=== PATIENT | female | born 1945 | race Caucasian/White ===

== ENCOUNTER 2017-01-10 09:23 | Inpatient (IN) ==
--- NOTE | 2017-01-10 09:54 | Emergency Department Note ---
Disposition Clinical Impression: Acute exacerbation of chronic obstructive airways disease, Atrial fibrillation with rapid ventricular response Disposition: Admitted As Inpatient Condition: Fair Referrals: Cornelia Stephen CNP [Primary Care Provider] - Forms: ED Satisfaction Letter General Adult HPI - General Chief complaint: ED Shortness of Breath/Dyspnea Stated complaint: chest pain Time Seen by Provider: 01/10/17 09:40 Source: patient Limitations: no limitations Nursing Notes Reviewed: Yes Vital Signs Reviewed: Yes - History of Present Illness Pain Scale: 6 - Related Data Home Medications Medication Instructions Recorded Confirmed Aspirin [Lo-Dose Aspirin EC] 81 mg PO DAILY 01/10/17 01/10/17 Carvedilol [Coreg] 25 mg PO BID 01/10/17 01/10/17 Cholecalciferol (D-3) [Vitamin D] 1,000 unit PO DAILY 01/10/17 01/10/17 Cyanocobalamin (B-12) [Vitamin B12] 1 ml IM QMONTH 01/10/17 01/10/17 Doxycycline Hyclate [Vibramycin] 100 mg PO BID 01/10/17 01/10/17 Losartan/Hydrochlorothiazide 1 tab PO DAILY 01/10/17 01/10/17 [Losartan-Hctz 50-12.5 mg Tab] Multivit-Min/FA/Lycopen/Lutein [A 1 tab PO DAILY 01/10/17 01/10/17 Thru Z Select Multivit Tab] Pantoprazole Sodium [Protonix] 40 mg PO DAILY 01/10/17 01/10/17 PredniSONE [Deltasone] 20 mg PO BID 01/10/17 01/10/17 Promethazine/Codeine 5 - 10 ml PO Q6HR PRN 01/10/17 01/10/17 [Phenergan/Codeine] Ustekinumab [STELARA (For 90 mg SQ Q3M 01/10/17 01/10/17 Outpatient Infusion)] Allergies Allergy/AdvReac Type Severity Reaction Status Date / Time No Known Allergies Allergy Verified 01/10/17 09:59 Past Medical History - Past Medical History Medical history: Reports: no medical history Psychiatric history: Reports: no psych history - Social History Smoking Status: Never smoker Smokeless Tobacco Status: No Alcohol use: Reports: none Drug use: Reports: none Physical Exam - General Limitations: no limitations General appearance: alert, in no apparent distress Course Vital Signs Temperature 0 F L 01/10/17 09:27 Pulse Rate 91 01/10/17 09:27 Respiratory Rate 18 01/10/17 09:27 Blood Pressure 0/0 01/10/17 09:27 O2 Sat by Pulse Oximetry 94 01/10/17 09:27 Temperature 98.5 F 01/10/17 10:01 Pulse Rate 116 01/10/17 12:15 Respiratory Rate 20 01/10/17 12:15 Blood Pressure 107/74 01/10/17 12:15 O2 Sat by Pulse Oximetry 97 01/10/17 12:15 Oxygen Delivery Oxygen Delivery Room Air Medical Decision Making - MDM Narrative Medical decision making narrative: I examined this patient and my medical decision-making was reviewed with the Resident Physician. I agree with the documented findings, disposition and treatment plan as described except to the extent set forth below. Patient was seen and evaluated by Dr. Silva and myself, I agree with his evaluation and treatment plan, I supervised the care of the patient's stay. Patient states that she has had a cough going on for several weeks. She is on doxycycline, a cough medication, and steroids now. She is denies having any heart issues in the past but she is on carvedilol. She says she follows up at [facility]. Receiving an old EKG. Currently she denies any chest pain. She has a low blood pressure and irregular heart rate with A. fib RVR. So we will give her fluids in supine control heart rate. And then reassess. She will most likely need admission. Chest X-Ray 01/10/17 09:41 IMPRESSION: No evidence of acute cardiopulmonary disease. D/ / Arturo Rodriguez MD / Arturo Rodriguez MD Interpreting Provider: Arturo Rodriguez MD 1105 hrs.: Her heart rate will go down to about 105 and 110 that I will go back up to 140. She has had fluids here were negative and start her on Cardizem. And then reassess. She will need admission. It appears this onset of A. fib is new. We still have not received records from [facility] this time. She says that is where she gets her cardiology care. 1130 hrs.: Placed her on Cardizem. Her white count elevated. Her chest x-ray does not show pneumonia. We will check her urinalysis also. Her d-dimer is elevated, so we will scan her chest to rule out PE. Chest X-Ray 01/10/17 09:41 IMPRESSION: No evidence of acute cardiopulmonary disease. D/ / Arturo Rodriguez MD / Arturo Rodriguez MD Interpreting Provider: Arturo Rodriguez MD Chest CTA 01/10/17 11:35 IMPRESSION: 1. No acute cardiopulmonary disease. 2. No pulmonary embolus. 3. COPD. D/ / Alina Koch MD / Alina Koch MD Interpreting Provider: Alina Koch MD Patient CTA shows no pulmonary embolism, COPD pattern. Number and return to the hospital with new onset atrial fibrillation. Started on the Cardizem. Patient agreed to the admission. Patient's critical care time excluding any separately billable procedures is 40 minutes. - Lab Data Result diagrams: 01/10/17 09:45 01/10/17 09:45 Lab Results 01/10/17 01/10/17 01/10/17 Range/Units 09:45 09:45 09:45 WBC 22.3 H (4.3-11.1) K/mcL RBC 5.16 H (3.82-4.97) M/mcL Hgb 16.0 H (11.5-15.4) g/dL Hct 48.8 H (35.3-44.9) % MCV 94.6 (83.0-100.0) fL MCH 31.0 (28.0-33.3) pg MCHC 32.8 (31.6-35.5) g/dL RDW 14.5 (11.5-14.5) % Plt Count 257 (140-400) K/mcL MPV 10.0 (9.4-12.4) fL Immature Gran % 0.8 (0-4) % Seg Neutrophils % 92.6 % Lymphocytes % 3.1 % Monocytes % 2.8 % Eosinophils % 0.6 % Basophils % 0.1 % Neutrophils # 20.6 H (1.6-8.9) K/mcL Lymphocytes # 0.7 (0.6-4.6) K/mcL Monocytes # 0.6 (0.0-1.3) K/mcL Eosinophils # 0.1 (0.0-0.6) K/mcL Basophils # 0.0 (0.0-0.2) K/mcL D-Dimer (0-500) ng/mLFEU Sodium 143 (136-145) mEq/L Potassium 3.7 (3.5-4.5) mEq/L Chloride 106 (98-109) mEq/L Carbon Dioxide 28 (19-29) mEq/L BUN 30 H (7-20) mg/dL Creatinine 1.15 H (0.57-1.11) mg/dL Est GFR ( Amer) 57 L (> 60) Est GFR (Non-Af Amer) 47 L (> 60) BUN/Creatinine Ratio 26 (6-26) Glucose 174 H (70-99) mg/dL Calculated Osmolality 306 H (280-300) Lactic Acid (0.5-2.2) mmol/L Calcium 9.8 (8.6-10.8) mg/dL Magnesium 2.2 (1.6-2.6) mg/dL Total Bilirubin 0.8 (0.2-1.2) mg/dL Direct Bilirubin 0.3 (0.0-0.5) mg/dL Indirect Bilirubin 0.5 (0.0-1.2) mg/dL AST 30 (5-34) Units/L ALT 29 (0-55) Units/L Alkaline Phosphatase 118 (38-126) Units/L Troponin I 0.02 (0-0.03) ng/mL B-Natriuretic Peptide (0-100) pg/mL Serum Total Protein 6.3 (6.0-8.3) g/dL Albumin 3.5 (3.5-5.0) g/dL Globulin 2.8 (2.4-3.5) g/dL Albumin/Globulin Ratio 1.3 (1.1-2.2) Urine Color (Yellow) Urine Clarity (Clear) Urine pH (5.0-8.0) pH Units Ur Specific [place] (1.010-1.025) Urine Protein (Neg-Trace) mg/dL Urine Glucose (UA) (Normal) mg/dL Urine Ketones (Negative) mg/dL Urine Blood (Negative) Urine Nitrite (Negative) Urine Bilirubin (Negative) Urine Urobilinogen (Normal) mg/dL Ur Leukocyte Esterase (Negative) Urine Microscopic RBC (0-3) per hpf Urine Microscopic WBC (0-3) per hpf Ur Squamous Epith Cells (None-Few) per lpf Urine Bacteria (None-Few) per hpf Hyaline Casts (None-Few) per lpf Ur Culture Indicated? (NO) 01/10/17 01/10/17 01/10/17 Range/Units 09:45 09:45 09:45 WBC (4.3-11.1) K/mcL RBC (3.82-4.97) M/mcL Hgb (11.5-15.4) g/dL Hct (35.3-44.9) % MCV (83.0-100.0) fL MCH (28.0-33.3) pg MCHC (31.6-35.5) g/dL RDW (11.5-14.5) % Plt Count (140-400) K/mcL MPV (9.4-12.4) fL Immature Gran % (0-4) % Seg Neutrophils % % Lymphocytes % % Monocytes % % Eosinophils % % Basophils % % Neutrophils # (1.6-8.9) K/mcL Lymphocytes # (0.6-4.6) K/mcL Monocytes # (0.0-1.3) K/mcL Eosinophils # (0.0-0.6) K/mcL Basophils # (0.0-0.2) K/mcL D-Dimer 2655 H (0-500) ng/mLFEU Sodium (136-145) mEq/L Potassium (3.5-4.5) mEq/L Chloride (98-109) mEq/L Carbon Dioxide (19-29) mEq/L BUN (7-20) mg/dL Creatinine (0.57-1.11) mg/dL Est GFR ( Amer) (> 60) Est GFR (Non-Af Amer) (> 60) BUN/Creatinine Ratio (6-26) Glucose (70-99) mg/dL Calculated Osmolality (280-300) Lactic Acid 2.1 (0.5-2.2) mmol/L Calcium (8.6-10.8) mg/dL Magnesium (1.6-2.6) mg/dL Total Bilirubin (0.2-1.2) mg/dL Direct Bilirubin (0.0-0.5) mg/dL Indirect Bilirubin (0.0-1.2) mg/dL AST (5-34) Units/L ALT (0-55) Units/L Alkaline Phosphatase (38-126) Units/L Troponin I (0-0.03) ng/mL B-Natriuretic Peptide 436 H (0-100) pg/mL Serum Total Protein (6.0-8.3) g/dL Albumin (3.5-5.0) g/dL Globulin (2.4-3.5) g/dL Albumin/Globulin Ratio (1.1-2.2) Urine Color (Yellow) Urine Clarity (Clear) Urine pH (5.0-8.0) pH Units Ur Specific [place] (1.010-1.025) Urine Protein (Neg-Trace) mg/dL Urine Glucose (UA) (Normal) mg/dL Urine Ketones (Negative) mg/dL Urine Blood (Negative) Urine Nitrite (Negative) Urine Bilirubin (Negative) Urine Urobilinogen (Normal) mg/dL Ur Leukocyte Esterase (Negative) Urine Microscopic RBC (0-3) per hpf Urine Microscopic WBC (0-3) per hpf Ur Squamous Epith Cells (None-Few) per lpf Urine Bacteria (None-Few) per hpf Hyaline Casts (None-Few) per lpf Ur Culture Indicated? (NO) 01/10/17 01/10/17 Range/Units 10:53 12:17 WBC (4.3-11.1) K/mcL RBC (3.82-4.97) M/mcL Hgb (11.5-15.4) g/dL Hct (35.3-44.9) % MCV (83.0-100.0) fL MCH (28.0-33.3) pg MCHC (31.6-35.5) g/dL RDW (11.5-14.5) % Plt Count (140-400) K/mcL MPV (9.4-12.4) fL Immature Gran % (0-4) % Seg Neutrophils % % Lymphocytes % % Monocytes % % Eosinophils % % Basophils % % Neutrophils # (1.6-8.9) K/mcL Lymphocytes # (0.6-4.6) K/mcL Monocytes # (0.0-1.3) K/mcL Eosinophils # (0.0-0.6) K/mcL Basophils # (0.0-0.2) K/mcL D-Dimer (0-500) ng/mLFEU Sodium (136-145) mEq/L Potassium (3.5-4.5) mEq/L Chloride (98-109) mEq/L Carbon Dioxide (19-29) mEq/L BUN (7-20) mg/dL Creatinine (0.57-1.11) mg/dL Est GFR ( Amer) (> 60) Est GFR (Non-Af Amer) (> 60) BUN/Creatinine Ratio (6-26) Glucose (70-99) mg/dL Calculated Osmolality (280-300) Lactic Acid 2.6 H (0.5-2.2) mmol/L Calcium (8.6-10.8) mg/dL Magnesium (1.6-2.6) mg/dL Total Bilirubin (0.2-1.2) mg/dL Direct Bilirubin (0.0-0.5) mg/dL Indirect Bilirubin (0.0-1.2) mg/dL AST (5-34) Units/L ALT (0-55) Units/L Alkaline Phosphatase (38-126) Units/L Troponin I (0-0.03) ng/mL B-Natriuretic Peptide (0-100) pg/mL Serum Total Protein (6.0-8.3) g/dL Albumin (3.5-5.0) g/dL Globulin (2.4-3.5) g/dL Albumin/Globulin Ratio (1.1-2.2) Urine Color [place] A (Yellow) Urine Clarity Cloudy A (Clear) Urine pH 6.0 (5.0-8.0) pH Units Ur Specific [place] > 1.030 H (1.010-1.025) Urine Protein 30 H (Neg-Trace) mg/dL Urine Glucose (UA) Normal (Normal) mg/dL Urine Ketones Trace H (Negative) mg/dL Urine Blood Negative (Negative) Urine Nitrite Negative (Negative) Urine Bilirubin Small H (Negative) Urine Urobilinogen Normal (Normal) mg/dL Ur Leukocyte Esterase Small H (Negative) Urine Microscopic RBC 5-15 H (0-3) per hpf Urine Microscopic WBC 3-5 H (0-3) per hpf Ur Squamous Epith Cells Many H (None-Few) per lpf Urine Bacteria None Seen (None-Few) per hpf Hyaline Casts Moderate H (None-Few) per lpf Ur Culture Indicated? YES A (NO)
[2017-01-10 10:02] LABS: Basophils % 0.1 %; Eosinophils # 0.1 K/mcL (0.0-0.6); Eosinophils % 0.6 %; Hematocrit 48.8 % (35.3-44.9); Immature Granulocytes % 0.8 % (0-4); Lymphocytes # 0.7 K/mcL (0.6-4.6); Lymphocytes % 3.1 %; Mean Corpuscular HGB Conc 32.8 g/dL (31.6-35.5); Mean Corpuscular Volume 94.6 fL (83.0-100.0); Monocytes # 0.6 K/mcL (0.0-1.3); Monocytes % 2.8 %; Neutrophils # 20.6 K/mcL (1.6-8.9); Platelet Count 257 K/mcL (140-400); Red Blood Count 5.16 M/mcL (3.82-4.97); Red Cell Distribution Width 14.5 % (11.5-14.5); Segmented Neutrophils % 92.6 %
[2017-01-10] MEDS ORDERED: 0.9 % Sodium Chloride 1,000 ML IVC ONE ×2 (10:07→10:39)
[2017-01-10 10:11] LABS: Calcium 9.8 mg/dL (8.6-10.8); Potassium 3.7 mEq/L (3.5-4.5)
--- NOTE | 2017-01-10 10:12 | Emergency Department Note ---
Disposition Clinical Impression: Atrial fibrillation with rapid ventricular response Chest pain Qualifiers: Chest pain type: unspecified Qualified Code(s): R07.9 - Chest pain, unspecified Disposition: Admitted As Inpatient Condition: Fair Referrals: Cornelia Stephen CNP [Primary Care Provider] - Forms: ED Satisfaction Letter General Adult HPI - General Chief complaint: ED Shortness of Breath/Dyspnea Stated complaint: chest pain Time Seen by Provider: 01/10/17 09:40 Source: patient Limitations: no limitations Nursing Notes Reviewed: Yes Vital Signs Reviewed: Yes - History of Present Illness HPI Narrative: 71-year-old female who reports couple weeks of shortness of breath and chest pressure. She has been having a cough and coughing up increased amounts of sputum. She denies a history of atrial fibrillation. She is on carvedilol which she reports was due to high blood pressure. She is not on any anticoagulants. Her other medical problems are hypertension. Radiation: non-radiation Pain Severity: moderate Pain Scale: 7 Consistency: constant Improves with: nothing Worsens with: other (expertion) Associated symptoms: Reports: denies other symptoms Treatments Prior to Arrival: none - Related Data Home Medications Medication Instructions Recorded Confirmed Aspirin [Lo-Dose Aspirin EC] 81 mg PO DAILY 01/10/17 01/10/17 Carvedilol [Coreg] 25 mg PO BID 01/10/17 01/10/17 Cholecalciferol (D-3) [Vitamin D] 1,000 unit PO DAILY 01/10/17 01/10/17 Cyanocobalamin (B-12) [Vitamin B12] 1 ml IM QMONTH 01/10/17 01/10/17 Doxycycline Hyclate [Vibramycin] 100 mg PO BID 01/10/17 01/10/17 Losartan/Hydrochlorothiazide 1 tab PO DAILY 01/10/17 01/10/17 [Losartan-Hctz 50-12.5 mg Tab] Multivit-Min/FA/Lycopen/Lutein [A 1 tab PO DAILY 01/10/17 01/10/17 Thru Z Select Multivit Tab] Pantoprazole Sodium [Protonix] 40 mg PO DAILY 01/10/17 01/10/17 PredniSONE [Deltasone] 20 mg PO BID 01/10/17 01/10/17 Promethazine/Codeine 5 - 10 ml PO Q6HR PRN 01/10/17 01/10/17 [Phenergan/Codeine] Ustekinumab [STELARA (For 90 mg SQ Q3M 01/10/17 01/10/17 Outpatient Infusion)] Allergies Allergy/AdvReac Type Severity Reaction Status Date / Time No Known Allergies Allergy Verified 01/10/17 09:59 All systems ED: reviewed and negative except as stated. Constitutional: Denies: fever Eyes: Denies: vision change ENT ED: Denies: throat pain Cardiovascular: Reports: chest pain Respiratory: Reports: cough, dyspnea, sputum production Gastrointestinal: Denies: abdominal pain Musculoskeletal: Denies: back pain Integumentary: Denies: rash Neurological: Denies: headache Endocrine: Reports: fatigue Past Medical History - Past Medical History Medical history: Reports: no medical history Psychiatric history: Reports: no psych history - Social History Smoking Status: Never smoker Smokeless Tobacco Status: No Alcohol use: Reports: none Drug use: Reports: none Physical Exam - General Limitations: no limitations General appearance: alert, in no apparent distress - Head Head exam: atraumatic - Eye Eye exam: Present: normal appearance, PERRL - ENT ENT exam: normal exam, normal oropharynx - Neck Neck exam: Present: normal inspection - Chest Chest inspection: Present: normal inspection - Respiratory Respiratory exam: Present: other (coarse lung sounds bilaterally. ). Absent: respiratory distress - Cardiovascular Cardiovascular exam: Present: regular rate, normal rhythm - Abdominal Exam Abdominal exam: Present: soft, Non-Tender - Extremities Exam Extremities exam: Present: normal inspection - Back Exam Back exam: Present: normal inspection - Neurological Exam Neurological exam: Present: alert, oriented X3 - Psychiatric Psychiatric exam: Present: normal affect, normal mood - Skin Skin exam: Present: warm, dry Course Course Narrative: She is coughing in the room but is not having acute respiratory distress. BP is mildly decreased and she is in Afib RVR. Will initally start IVF before attempting rate control. EKG shows Afib RVR with lateral ST depression Heart rate has improved to approximately 110 while being on 5 mg of Cardizem. Her symptoms of dyspnea and chest pressure have all resolved. I will give her Lovenox and admit her to the hospital. Vital Signs Temperature 0 F L 01/10/17 09:27 Pulse Rate 91 01/10/17 09:27 Respiratory Rate 18 01/10/17 09:27 Blood Pressure 0/0 01/10/17 09:27 O2 Sat by Pulse Oximetry 94 01/10/17 09:27 Temperature 98.5 F 01/10/17 10:01 Pulse Rate 104 01/10/17 12:45 Respiratory Rate 20 01/10/17 12:45 Blood Pressure 85/67 01/10/17 12:45 O2 Sat by Pulse Oximetry 96 01/10/17 12:45 Oxygen Delivery Oxygen Delivery Room Air Medical Decision Making - Medical Records Medical records reviewed: Yes I reviewed the patient's medical records. - Lab Data Lab results reviewed: Yes I reviewed the patient's lab results. Result diagrams: 01/10/17 09:45 01/10/17 09:45 Lab Results 01/10/17 01/10/17 01/10/17 Range/Units 09:45 09:45 09:45 WBC 22.3 H (4.3-11.1) K/mcL RBC 5.16 H (3.82-4.97) M/mcL Hgb 16.0 H (11.5-15.4) g/dL Hct 48.8 H (35.3-44.9) % MCV 94.6 (83.0-100.0) fL MCH 31.0 (28.0-33.3) pg MCHC 32.8 (31.6-35.5) g/dL RDW 14.5 (11.5-14.5) % Plt Count 257 (140-400) K/mcL MPV 10.0 (9.4-12.4) fL Immature Gran % 0.8 (0-4) % Seg Neutrophils % 92.6 % Lymphocytes % 3.1 % Monocytes % 2.8 % Eosinophils % 0.6 % Basophils % 0.1 % Neutrophils # 20.6 H (1.6-8.9) K/mcL Lymphocytes # 0.7 (0.6-4.6) K/mcL Monocytes # 0.6 (0.0-1.3) K/mcL Eosinophils # 0.1 (0.0-0.6) K/mcL Basophils # 0.0 (0.0-0.2) K/mcL D-Dimer (0-500) ng/mLFEU Sodium 143 (136-145) mEq/L Potassium 3.7 (3.5-4.5) mEq/L Chloride 106 (98-109) mEq/L Carbon Dioxide 28 (19-29) mEq/L BUN 30 H (7-20) mg/dL Creatinine 1.15 H (0.57-1.11) mg/dL Est GFR ( Amer) 57 L (> 60) Est GFR (Non-Af Amer) 47 L (> 60) BUN/Creatinine Ratio 26 (6-26) Glucose 174 H (70-99) mg/dL Calculated Osmolality 306 H (280-300) Lactic Acid (0.5-2.2) mmol/L Calcium 9.8 (8.6-10.8) mg/dL Magnesium 2.2 (1.6-2.6) mg/dL Total Bilirubin 0.8 (0.2-1.2) mg/dL Direct Bilirubin 0.3 (0.0-0.5) mg/dL Indirect Bilirubin 0.5 (0.0-1.2) mg/dL AST 30 (5-34) Units/L ALT 29 (0-55) Units/L Alkaline Phosphatase 118 (38-126) Units/L Troponin I 0.02 (0-0.03) ng/mL B-Natriuretic Peptide (0-100) pg/mL Serum Total Protein 6.3 (6.0-8.3) g/dL Albumin 3.5 (3.5-5.0) g/dL Globulin 2.8 (2.4-3.5) g/dL Albumin/Globulin Ratio 1.3 (1.1-2.2) Urine Color (Yellow) Urine Clarity (Clear) Urine pH (5.0-8.0) pH Units Ur Specific [place] (1.010-1.025) Urine Protein (Neg-Trace) mg/dL Urine Glucose (UA) (Normal) mg/dL Urine Ketones (Negative) mg/dL Urine Blood (Negative) Urine Nitrite (Negative) Urine Bilirubin (Negative) Urine Urobilinogen (Normal) mg/dL Ur Leukocyte Esterase (Negative) Urine Microscopic RBC (0-3) per hpf Urine Microscopic WBC (0-3) per hpf Ur Squamous Epith Cells (None-Few) per lpf Urine Bacteria (None-Few) per hpf Hyaline Casts (None-Few) per lpf Ur Culture Indicated? (NO) 01/10/17 01/10/17 01/10/17 Range/Units 09:45 09:45 09:45 WBC (4.3-11.1) K/mcL RBC (3.82-4.97) M/mcL Hgb (11.5-15.4) g/dL Hct (35.3-44.9) % MCV (83.0-100.0) fL MCH (28.0-33.3) pg MCHC (31.6-35.5) g/dL RDW (11.5-14.5) % Plt Count (140-400) K/mcL MPV (9.4-12.4) fL Immature Gran % (0-4) % Seg Neutrophils % % Lymphocytes % % Monocytes % % Eosinophils % % Basophils % % Neutrophils # (1.6-8.9) K/mcL Lymphocytes # (0.6-4.6) K/mcL Monocytes # (0.0-1.3) K/mcL Eosinophils # (0.0-0.6) K/mcL Basophils # (0.0-0.2) K/mcL D-Dimer 2655 H (0-500) ng/mLFEU Sodium (136-145) mEq/L Potassium (3.5-4.5) mEq/L Chloride (98-109) mEq/L Carbon Dioxide (19-29) mEq/L BUN (7-20) mg/dL Creatinine (0.57-1.11) mg/dL Est GFR ( Amer) (> 60) Est GFR (Non-Af Amer) (> 60) BUN/Creatinine Ratio (6-26) Glucose (70-99) mg/dL Calculated Osmolality (280-300) Lactic Acid 2.1 (0.5-2.2) mmol/L Calcium (8.6-10.8) mg/dL Magnesium (1.6-2.6) mg/dL Total Bilirubin (0.2-1.2) mg/dL Direct Bilirubin (0.0-0.5) mg/dL Indirect Bilirubin (0.0-1.2) mg/dL AST (5-34) Units/L ALT (0-55) Units/L Alkaline Phosphatase (38-126) Units/L Troponin I (0-0.03) ng/mL B-Natriuretic Peptide 436 H (0-100) pg/mL Serum Total Protein (6.0-8.3) g/dL Albumin (3.5-5.0) g/dL Globulin (2.4-3.5) g/dL Albumin/Globulin Ratio (1.1-2.2) Urine Color (Yellow) Urine Clarity (Clear) Urine pH (5.0-8.0) pH Units Ur Specific [place] (1.010-1.025) Urine Protein (Neg-Trace) mg/dL Urine Glucose (UA) (Normal) mg/dL Urine Ketones (Negative) mg/dL Urine Blood (Negative) Urine Nitrite (Negative) Urine Bilirubin (Negative) Urine Urobilinogen (Normal) mg/dL Ur Leukocyte Esterase (Negative) Urine Microscopic RBC (0-3) per hpf Urine Microscopic WBC (0-3) per hpf Ur Squamous Epith Cells (None-Few) per lpf Urine Bacteria (None-Few) per hpf Hyaline Casts (None-Few) per lpf Ur Culture Indicated? (NO) 01/10/17 01/10/17 Range/Units 10:53 12:17 WBC (4.3-11.1) K/mcL RBC (3.82-4.97) M/mcL Hgb (11.5-15.4) g/dL Hct (35.3-44.9) % MCV (83.0-100.0) fL MCH (28.0-33.3) pg MCHC (31.6-35.5) g/dL RDW (11.5-14.5) % Plt Count (140-400) K/mcL MPV (9.4-12.4) fL Immature Gran % (0-4) % Seg Neutrophils % % Lymphocytes % % Monocytes % % Eosinophils % % Basophils % % Neutrophils # (1.6-8.9) K/mcL Lymphocytes # (0.6-4.6) K/mcL Monocytes # (0.0-1.3) K/mcL Eosinophils # (0.0-0.6) K/mcL Basophils # (0.0-0.2) K/mcL D-Dimer (0-500) ng/mLFEU Sodium (136-145) mEq/L Potassium (3.5-4.5) mEq/L Chloride (98-109) mEq/L Carbon Dioxide (19-29) mEq/L BUN (7-20) mg/dL Creatinine (0.57-1.11) mg/dL Est GFR ( Amer) (> 60) Est GFR (Non-Af Amer) (> 60) BUN/Creatinine Ratio (6-26) Glucose (70-99) mg/dL Calculated Osmolality (280-300) Lactic Acid 2.6 H (0.5-2.2) mmol/L Calcium (8.6-10.8) mg/dL Magnesium (1.6-2.6) mg/dL Total Bilirubin (0.2-1.2) mg/dL Direct Bilirubin (0.0-0.5) mg/dL Indirect Bilirubin (0.0-1.2) mg/dL AST (5-34) Units/L ALT (0-55) Units/L Alkaline Phosphatase (38-126) Units/L Troponin I (0-0.03) ng/mL B-Natriuretic Peptide (0-100) pg/mL Serum Total Protein (6.0-8.3) g/dL Albumin (3.5-5.0) g/dL Globulin (2.4-3.5) g/dL Albumin/Globulin Ratio (1.1-2.2) Urine Color [place] A (Yellow) Urine Clarity Cloudy A (Clear) Urine pH 6.0 (5.0-8.0) pH Units Ur Specific [place] > 1.030 H (1.010-1.025) Urine Protein 30 H (Neg-Trace) mg/dL Urine Glucose (UA) Normal (Normal) mg/dL Urine Ketones Trace H (Negative) mg/dL Urine Blood Negative (Negative) Urine Nitrite Negative (Negative) Urine Bilirubin Small H (Negative) Urine Urobilinogen Normal (Normal) mg/dL Ur Leukocyte Esterase Small H (Negative) Urine Microscopic RBC 5-15 H (0-3) per hpf Urine Microscopic WBC 3-5 H (0-3) per hpf Ur Squamous Epith Cells Many H (None-Few) per lpf Urine Bacteria None Seen (None-Few) per hpf Hyaline Casts Moderate H (None-Few) per lpf Ur Culture Indicated? YES A (NO) - Radiology Data Radiology results reviewed: Yes I reviewed the patient's radiology results. - EKG Data EKG #1 EKG attestation: Yes I reviewed and interpreted this EKG. Rate: tachycardia Rhythm: A.Fib [place]/QRS: normal Interpretation: other (Afib RVR rate [address] depression)
[2017-01-10 10:52] LABS: Albumin 3.5 g/dL (3.5-5.0); Albumin/Globulin Ratio 1.3 (1.1-2.2); Bilirubin,Direct 0.3 mg/dL (0.0-0.5); Bilirubin,Indirect 0.5 mg/dL (0.0-1.2); Bilirubin,Total 0.8 mg/dL (0.2-1.2); Globulin 2.8 g/dL (2.4-3.5); Magnesium 2.2 mg/dL (1.6-2.6); Total Protein 6.3 g/dL (6.0-8.3)
[2017-01-10 11:00] LABS: Bilirubin,Urine Small (Negative); Blood,Urine Negative (Negative); Clarity,Urine Cloudy (Clear); Color,Urine Orange (Yellow); Glucose,Urine (UA) Normal (Normal); Ketones,Urine Trace mg/dL (Negative); Leukocyte Esterase,Urine Small (Negative); Nitrite,Urine Negative (Negative); Protein,Urine 30 mg/dL (Neg-Trace); Specific Gravity,Urine > 1.030 (1.010-1.025); Urobilinogen,Urine Normal (Normal)
[2017-01-10 11:02] LABS: Bacteria,Urine None Seen per hpf (None-Few); Hyaline Casts,Urine Moderate per lpf (None-Few); Squamous Epithelial Cell,Urine Many per lpf (None-Few)
[2017-01-10] MEDS: dilTIAZem HCl 100 MG in D5% in Water 50 ML IVC SCH (11:40)
[2017-01-10] MEDS ORDERED: *HR* Enoxaparin 80 MG/0.8 ML SYRINGE SQ STA (12:37)
[2017-01-10] MEDS ORDERED: Naloxone 0.4 MG/ML INJ IVP PRN (17:12)
[2017-01-10] MEDS ORDERED: MOM Conc 10 ML UD.LIQ PO PRN (17:12)
[2017-01-10] MEDS ORDERED: Promethazine/Codeine Oral Sryup 5 ML UDC PO PRN (17:15)
--- NOTE | 2017-01-10 17:22 | Internal Med History&Physical ---
Date of Encounter: 01/10/17 Time of Encounter: 17:19 Assessment and Plan (1) Atrial fibrillation with rapid ventricular response Current visit: Yes Status: Acute 71/female Admitted with atrial fibrillation with a rapid ventricular rate. Evaluated in the emergency room for persistent cough and shortness of breath. This is a new onset of atrial fibrillation. Started on Cardizem drip. At this point patient is chest pain-free Troponin 0.02 to 0.16 Plan: Admit as inpatient. Intravenous Cardizem. Presently patient's heart rate is in 70s. Titrate Cardizem drip to keep the heart rate in 70. Aspirin/Coreg/Lipitor Lovenox 1 mg/Kg Echocardiogram Started Ceftraxne/Azithromycin after blood culture ( WBC 22K) IV steroids Spoke becky Quiles and updated regarding plan. (2) COPD exacerbation Current visit: Yes Status: Acute See above (3) Chest pain Current visit: Yes Status: Acute see above Qualifiers: Chest pain type: unspecified Qualified Code(s): R07.9 - Chest pain, unspecified (4) DVT prophylaxis Current visit: Yes Status: Acute Lovenox Internal Medicine - H&P: HPI Chief complaint: Shortness of breath Admitted From: Emergency Dept Plans for Post Hospital Care: Home History of present illness: PCP : ALINA Locke from [facility]. Cardiology : Dr Kaufman from [facility] PMH: HTN, Hyperlipidemia, Allergies. HPI: Worsening cough and SOB along with palpitations for past 10 days. Progressively worsened in last 48 hours. Patient claims that the cough is barking in nature and associated with generalized chest pain. Patient has minimal expectoration. The expectoration is clear in nature. Patient denies abdominal pain, nausea, vomiting, dizziness and diarrhea. Patient came to emergency room for worsening shortness of breath, palpitation and persistent cough. Workup in the emergency room: Patient was evaluated in the emergency room. Basic labs were drawn. On the monitor it was noted that patient is in atrial fibrillation. Patient was placed on Cardizem drip. Reason for admission: Atrial flutter ablation with rapid ventricular rate on a Cardizem drip. This is a new onset of atrial fibrillation. Family history: Noncontributory Past Med Surg Social Fam HX - Past Medical History Medical history: cancer Psychiatric history: no psych history - Past Surgical History Surgical History: hysterectomy - Social History Smoking Status: Never smoker Smokeless Tobacco Status: No Alcohol use: none Drug use: none Internal Medicine - H&P: Meds Aspirin [Lo-Dose Aspirin EC] 81 mg PO DAILY 01/10/17 [History] Carvedilol [Coreg] 25 mg PO BID 01/10/17 [History] Cholecalciferol (D-3) [Vitamin D] 1,000 unit PO DAILY 01/10/17 [History] Cyanocobalamin (B-12) [Vitamin B12] 1 ml IM QMONTH 01/10/17 [History] Doxycycline Hyclate [Vibramycin] 100 mg PO BID 01/10/17 [History] Losartan/Hydrochlorothiazide [Losartan-Hctz 50-12.5 mg Tab] 1 tab PO DAILY 01/10 [History] Multivit-Min/FA/Lycopen/Lutein [A Thru Z Select Multivit Tab] 1 tab PO DAILY [History] Pantoprazole Sodium [Protonix] 40 mg PO DAILY 01/10/17 [History] PredniSONE [Deltasone] 20 mg PO BID 01/10/17 [History] Promethazine/Codeine [Phenergan/Codeine] 5 - 10 ml PO Q6HR PRN 01/10/17 [History ] Ustekinumab [STELARA (For Outpatient Infusion)] 90 mg SQ Q3M 01/10/17 [History] 3 Allergy/AdvReac Type Severity Reaction Status Date / Time No Known Allergies Allergy Verified 01/10/17 09:59 All Systems PM: A 10-system review of systems was performed and is negative for pertinent findings except as documented above in the HPI. - Constitutional Constitutional: no chills, no fever(s), no night sweats - EENT Eyes: no change in vision, no discharge, no pain, no photophobia Ears: no ear discharge, no ear pain, no tinnitus Nose, mouth and throat: no dysphagia, no nasal discharge, no neck pain, no sore throat - Cardiovascular Cardiovascular ROS IM: chest pain, diaphoresis, dyspnea, lightheadedness, palpitations, no syncope - Respiratory Respiratory: cough, excessive phlegm production, no dyspnea, no wheezing - Gastrointestinal Gastrointestinal: no abdominal pain, no diarrhea, no hematemesis, no hematochezia, no melena, no nausea, no vomiting - Genitourinary Genitourinary: no change in urinary stream, no dysuria, no flank pain, no hematuria - Musculoskeletal Musculoskeletal ROS IM: no numbness, no tingling - Integumentary Integumentary IM: no rash, no unusual bruising - Neurological Neurological ROS: no confusion, no convulsions, no focal weakness, no numbness, no tingling, no tremor(s) - Hematologic/Lymphatic Hematologic/Lymphatic: no easy bruising - Constitutional Vitals: Temp Pulse Resp BP Pulse Ox 98.5 F 72 20 113/69 96 01/10/17 10:01 01/10/17 15:11 01/10/17 13:56 01/10/17 15:11 01/10/17 15:17 General appearance: Present: A&O X 3, pleasant, no acute distress, answers questions appropriately - Head Head exam: Present: atraumatic, normocephalic - Eye Eye exam: Present: PERRL, conjuntiva pink, sclera anicteric Pupils: Present: PERRL - Neck Neck exam general surgery: Present: supple, trachea midline. Absent: lymphadenopathy - Respiratory Respiratory exam: Present: CTAB. Absent: accessory muscle use, rales, rhonchi, wheezes - Cardiovascular Cardiovascular exam: Present: RRR, +S1, +S2. Absent: diastolic murmur, gallop, rubs, systolic murmur - GI/Abdominal GI/Abdominal exam: Present: normal bowel sounds, soft, no peritoneal signs. Absent: distended, tenderness - Extremities Exam Extremities exam: Present: warm, radial pulses palpable and symmetrical. Absent : calf tenderness, cyanotic, pedal edema - Neurological Exam Neurological exam: Present: CN II-XII intact, oriented X3, no focal deficits. Absent: pronater drift, facial droop, speech deficit - Skin Skin exam: Present: dry, intact Internal Med - H&P Results - Labs CBC & Chem 7: 01/10/17 09:45 01/10/17 09:45
[2017-01-10] MEDS: cefTRIAXone 1,000 MG in Water for inj. (sterile) 10 ML IVPB SCH (21:14)
[2017-01-10] MEDS: 0.9 % Sodium Chloride 1,000 ML IVC SCH (21:14)
[2017-01-10] MEDS: Azithromycin 500 MG in D5% in Water 250 ML IVPB SCH (21:15)
[2017-01-11] MEDS: *HR* Enoxaparin 80 MG/0.8 ML SYRINGE SQ SCH ×2 (00:59→14:12)
[2017-01-11] MEDS: MethylPREDNISolone 40 MG/ML VIAL IVP SCH ×3 (01:00→17:04)
[2017-01-11] MEDS: dilTIAZem HCl 100 MG in D5% in Water 50 ML IVC SCH (03:13)
[2017-01-11 05:29] LABS: Basophils % 0.1 %; Eosinophils % 0.2 %; Immature Granulocytes % 0.5 % (0-4); Lymphocytes # 0.8 K/mcL (0.6-4.6); Lymphocytes % 6.1 %; Mean Corpuscular HGB Conc 33.1 g/dL (31.6-35.5); Mean Corpuscular Hemoglobin 30.8 pg (28.0-33.3); Mean Corpuscular Volume 92.9 fL (83.0-100.0); Mean Platelet Volume 9.8 fL (9.4-12.4); Monocytes # 0.2 K/mcL (0.0-1.3); Monocytes % 1.3 %; Neutrophils # 11.2 K/mcL (1.6-8.9); Platelet Count 201 K/mcL (140-400); Red Blood Count 4.52 M/mcL (3.82-4.97); Red Cell Distribution Width 14.6 % (11.5-14.5); Segmented Neutrophils % 91.8 %
[2017-01-11 05:32] LABS: Hemoglobin 13.9 g/dL (11.5-15.4)
[2017-01-11 05:34] LABS: INR 1.3; Prothrombin Time 13.7 Seconds (9.4-12.1)
[2017-01-11 05:37] LABS: Activated Partial Thrombo Time 36.8 Seconds (26.0-36.0)
[2017-01-11 05:46] LABS: Alanine Aminotransferase 21 Units/L (0-55); Albumin/Globulin Ratio 0.9 (1.1-2.2); Alkaline Phosphatase 91 Units/L (38-126); Aspartate Amino Transferase 21 Units/L (5-34); BUN/Creatinine Ratio 22 (6-26); Bilirubin,Total 0.5 mg/dL (0.2-1.2); Calcium 8.8 mg/dL (8.6-10.8); Carbon Dioxide 22 mEq/L (19-29); Chloride 108 mEq/L (98-109); Chol/HDL Ratio 3.5 (0-4.9); Cholesterol 128 mg/dL (< 200); Globulin 2.9 g/dL (2.4-3.5); Glucose 161 mg/dL (70-99); HDL Cholesterol 37 mg/dL (40-59); LDL Cholesterol,Calculated 71 mg/dL (0-99); Magnesium 1.8 mg/dL (1.6-2.6); Osmolality,Calculated 296 (280-300); Phosphorous 2.4 mg/dL (2.3-4.7); Potassium 3.3 mEq/L (3.5-4.5); Sodium 140 mEq/L (136-145); Total Protein 5.5 g/dL (6.0-8.3); Triglycerides 101 mg/dL (< 150); eGFR For African Americans > 60 (> 60); eGFR For Non-African Americans > 60 (> 60)
[2017-01-11 05:47] LABS: Albumin 2.6 g/dL (3.5-5.0); Blood Urea Nitrogen 19 mg/dL (7-20)
[2017-01-11] MEDS: Aspirin Enteric Coated 81 MG Tablet PO SCH (08:45)
[2017-01-11] MEDS: Cholecalciferol (D-3) 1,000 UNIT TABLET PO SCH (08:46)
[2017-01-11] MEDS: Losartan/HCTZ 50-12.5 TABLET PO SCH (08:46)
--- NOTE | 2017-01-11 13:17 | Internal Med Progress Note ---
Date of Encounter: 01/11/17 Time of Encounter: 17:30 - Assessment and plan (1) Atrial fibrillation with rapid ventricular response Current Visit: Yes Status: Acute (2) COPD exacerbation Current Visit: Yes Status: Acute (3) NSTEMI (non-ST elevated myocardial infarction) Current Visit: Yes Status: Acute (4) Hypokalemia Current Visit: Yes Status: Acute - Time Spent With Patient Replace electrolyte, keep potassium more than 4 magnesium more than 2, wean off Cardizem drip. Patient currently on long acting Cardizem. Continue anticoagulant. Continue current antibiotic, add mucinex continue steroids. Wean off oxygen as tolerated, awaiting cardiology and with regarding invasive workup. Possible discharge next 24 hours to 48 hour 25 - 35 minutes - Subjective Interval history: Patient stated that her shortness of breath is improving. Patient denies any chest pain. Patient continued to have productive cough with light yellow sputum much better compared to yesterday - Constitutional Vitals: Temp Pulse Resp BP Pulse Ox 97.7 F 58 18 122/67 94 01/11/17 11:09 01/11/17 11:09 01/11/17 11:09 01/11/17 11:09 01/11/17 11:09 General appearance: Present: A&O X 3, pleasant, no acute distress, answers questions appropriately - Head Head exam: Present: atraumatic, normocephalic - Neck Neck exam general surgery: Present: supple, trachea midline. Absent: lymphadenopathy - Respiratory Respiratory exam: Present: decreased breath sounds, rales (Rales bilateral lung bases). Absent: accessory muscle use, rhonchi, wheezes - Cardiovascular Cardiovascular exam: Present: irregular rhythm, +S1, +S2. Absent: diastolic murmur, gallop, rubs, systolic murmur - GI/Abdominal GI/Abdominal exam: Present: normal bowel sounds, soft, no peritoneal signs. Absent: distended, tenderness - Extremities Exam Extremities exam: Present: warm, radial pulses palpable and symmetrical. Absent : calf tenderness, cyanotic, pedal edema Internal Medicine: Result - Labs CBC & Chem 7: 01/11/17 05:19 01/11/17 05:19 Labs: Short CBC 01/11/17 Range/Units 05:19 WBC 12.2 H (4.3-11.1) K/mcL Hgb 13.9 D (11.5-15.4) g/dL Hct 42.0 (35.3-44.9) % Plt Count 201 (140-400) K/mcL Neutrophils # 11.2 H (1.6-8.9) K/mcL BMP 01/11/17 05:19 Sodium 140 Potassium 3.3 L Chloride 108 Carbon Dioxide 22 BUN 19 D Creatinine 0.88 Glucose 161 H Calcium 8.8 Cardiac Enzymes 01/10/17 01/10/17 01/11/17 Range/Units 17:27 22:58 05:19 Troponin I 0.16 H* 0.27 H* 0.25 H* (0-0.03) ng/mL Liver Function 01/11/17 Range/Units 05:19 Total Bilirubin 0.5 (0.2-1.2) mg/dL AST 21 (5-34) Units/L ALT 21 (0-55) Units/L Alkaline Phosphatase 91 (38-126) Units/L Albumin 2.6 L D (3.5-5.0) g/dL - ABG Interpretation ABG results: PT/INR, D-dimer PT 13.7 Seconds (9.4-12.1) H 01/11/17 05:19 D-Dimer 2655 ng/mLFEU (0-500) H 01/10/17 09:45 Consult Discharge Plan - Plan Referrals: Cornelia Stephen, JOSE [Primary Care Provider] -
[2017-01-11] MEDS: 0.9 % Sodium Chloride 1,000 ML IVC SCH (14:11)
[2017-01-11] MEDS: cefTRIAXone 1,000 MG in Water for inj. (sterile) 10 ML IVPB SCH (17:04)
[2017-01-11] MEDS: Azithromycin 500 MG in D5% in Water 250 ML IVPB SCH (17:09)
--- NOTE | 2017-01-11 17:28 | Cardiology Consult Note ---
<Aggie Batista - Last Filed: 01/11/17 17:23> Date of Encounter: 01/11/17 Time of Encounter: 15:30 Assessment and Plan (1) Atrial fibrillation with rapid ventricular response Current Visit: Yes Status: Acute Per cardiology: -On admission noted to be in atrial fibrillation with RVR. -Was placed on cardizem drip, now SR. -TTE pending. -[id number] score 3 (age, gender, HTN). oil heaterman anticoagulation recommended. Currently on therapeutic lovenox. -ON beta vicente. -Average HR previous 12 hours noted to be 64. -Pending TTE and invasive cardiac work up, will decide regarding intermediate designer anticoagulation. -Will start cardizem CD 120mg daily. -Will continue to monitor. (2) NSTEMI (non-ST elevated myocardial infarction) Current Visit: Yes Status: Acute Per cardiology: -Admitted with chest pain. -Troponins 0.02, 0.16, 0.27, 0.25. -ECG with atrial fibrillation with RVR, ST depression noted. -Denies current chest pain. -On therapeutic lovenox. -ON asa, statin, beta vicente. -TTE pending. -Plan for possible LHC pending TTE results. -Will continue to monitor. Discussion w patient/family: The assessment and plan as outlined above was discussed with the patient who expressed understanding and agreement. All questions were answered. Thank you for involving us in the care of your patient. Please call with any questions. Discussed and reviewed with . History of Present Illness Consult date: 01/10/17 Requesting physician: Vance Fields Consult reason: elevated troponin, a.fib RVR Chief complaint: chest pain History of present illness: Ms. Tatum is a 71 year old female with a relevant past medical history of HTN. Patient states for the past 2 weeks she has been having cough and congestion. Patient states she was seen by her PCP. Patient states she noticed a couple of days ago that is felt like her heart was racing. Patient states that prior to presenting to hospital, she had onset of chest pressure that felt like "an elephant sitting on my chest." Patient states that episode was associated with nausea and lightheadedness. Patient denies aggravating or alleviating factors. Patient denies current chest pressure or heart racing. Patient reports has had increased shortness of breath and increased fatigue. Past Med Surg Social Fam HX - Past Medical History Attestation: Yes The following information was validated with the patient. Source: patient, old records reviewed Medical history: cancer, hypertension Psychiatric history: no psych history - Past Surgical History Surgical History: hysterectomy - Social History Smoking Status: Never smoker Smokeless Tobacco Status: No Alcohol use: none Drug use: none Medications and Allergies Aspirin [Lo-Dose Aspirin EC] 81 mg PO DAILY 01/10/17 [History] Carvedilol [Coreg] 25 mg PO BID 01/10/17 [History] Cholecalciferol (D-3) [Vitamin D] 1,000 unit PO DAILY 01/10/17 [History] Cyanocobalamin (B-12) [Vitamin B12] 1 ml IM QMONTH 01/10/17 [History] Doxycycline Hyclate [Vibramycin] 100 mg PO BID 01/10/17 [History] Losartan/Hydrochlorothiazide [Losartan-Hctz 50-12.5 mg Tab] 1 tab PO DAILY 01/10 [History] Multivit-Min/FA/Lycopen/Lutein [A Thru Z Select Multivit Tab] 1 tab PO DAILY [History] Pantoprazole Sodium [Protonix] 40 mg PO DAILY 01/10/17 [History] PredniSONE [Deltasone] 20 mg PO BID 01/10/17 [History] Promethazine/Codeine [Phenergan/Codeine] 5 - 10 ml PO Q6HR PRN 01/10/17 [History ] Ustekinumab [STELARA (For Outpatient Infusion)] 90 mg SQ Q3M 01/10/17 [History] 3 Allergy/AdvReac Type Severity Reaction Status Date / Time No Known Allergies Allergy Verified 01/10/17 09:59 All Systems Review: A 10-system review of systems was performed and is negative for pertinent findings except as documented above in the HPI. - Cardiovascular Cardiovascular: as per HPI, chest pain at rest, dyspnea at rest, dyspnea on exertion, lightheadedness, rapid heart rate - Gastrointestinal Gastrointestinal: nausea Physical Examination Vital Signs, Last 4 Hours Temp Pulse Resp BP Pulse Ox 01/11/17 16:00 97.8 F 64 16 128/78 94 General: Conversant, No Apparent Distress HEENT: Atraumatic, Normocephaly, Mucus Membranes Moist Neck: No JVD, Normal carotid pulses Cardiac: Reg Rate and Rhythm, Normal S1 and S2, No Murmur Lungs: Normal Breath Sounds, No Wheeze, Rales, Rhonchi Neuro: Alert and responsive, No focal deficits noted Abdomen: Soft, Non-Tender Skin: No rashes noted on visualized skin Musculoskeletal: No Chest Wall Tenderness Extremities: No Clubbing, No Cyanosis, No Edema, Normal Pulses Results 01/11/17 05:19 01/11/17 05:19 Lab Results Active Medications Aspirin (Aspirin Ec) 81 mg PO DAILY SALOME Stop: 07/13/17 09:01 Last Admin: 01/11/17 08:45 Dose: 81 mg Atorvastatin Calcium (Lipitor) 40 mg PO HS SALOME Stop: 07/12/17 21:01 Last Admin: 01/10/17 21:15 Dose: 40 mg Carvedilol (Coreg) 25 mg PO BIDWM SALOME PRN Reason: Protocol Stop: 07/12/17 21:01 Last Admin: 01/11/17 17:05 Dose: 25 mg Docusate Sodium (Colace) 100 mg PO BID PRN PRN Reason: Constipation Stop: 07/12/17 17:13 Enoxaparin Sodium (Lovenox) 80 mg 1 mg/kg (80 mg) SQ Q12H SALOME PRN Reason: Protocol Stop: 07/13/17 00:01 Last Admin: 01/11/17 14:12 Dose: 80 mg HCTZ/Losartan Potassium (Hyzaar 50/12.5) 1 each PO DAILY SALOME Stop: 07/13/17 09:01 Last Admin: 01/11/17 08:46 Dose: 1 each Diltiazem HCl 100 mg/ Dextrose 50 mls @ 2.5 mls/hr IVC .Q20H SALOME; 5 MG/HR PRN Reason: Protocol Stop: 07/12/17 11:16 Last Titration: 01/11/17 10:34 Dose: 0 mg/hr, 0 mls/hr Ceftriaxone Sodium 1,000 mg/ (Sterile Water) 10 mls @ 300 mls/hr IVPB Q24H SALOME Stop: 07/12/17 19:01 Last Admin: 01/11/17 17:04 Dose: 300 mls/hr Azithromycin 500 mg/ Dextrose 250 mls @ 252 mls/hr IVPB Q24H SALOME Stop: 07/12/17 19:01 Last Admin: 01/11/17 17:09 Dose: 252 mls/hr Sodium Chloride (0.9 % Sodium Chloride) 1,000 mls @ 70 mls/hr IVC .[id number] SALOME Stop: 07/12/17 18:16 Last Admin: 01/11/17 14:11 Dose: 70 mls/hr Magnesium Hydroxide (Milk Of Magnesia Conc) 10 ml PO DAILY PRN PRN Reason: Indigestion Stop: 07/12/17 17:13 Methylprednisolone (Solu-Medrol) 40 mg IVP Q8HR SALOME Stop: 07/13/17 00:01 Last Admin: 01/11/17 17:04 Dose: 40 mg Naloxone HCl (Narcan) 0.4 mg IVP Q2MIN PRN PRN Reason: Opioid Reversal Stop: 07/12/17 17:13 Non-Formulary Medication (Cyanocobalamin (B-12)) 1 ml IM QMONTH [facility] Stop: 07/12/17 17:16 Omeprazole (Prilosec) 20 mg PO DAILY SALOME Stop: 07/13/17 09:01 Last Admin: 01/11/17 08:46 Dose: 20 mg Promethazine HCl/Codeine (Phenergan/Codeine) 5 - 10 ml PO Q6HR PRN; Protocol PRN Reason: Cough Stop: 07/12/17 17:16 Vitamin D (Vitamin D) 1,000 unit PO DAILY SALOME Stop: 07/13/17 09:01 Last Admin: 01/11/17 08:46 Dose: 1,000 unit Laboratory Tests 01/10/17 01/10/17 01/10/17 09:45 17:27 22:58 WBC Hgb Creatinine Troponin I 0.02 0.16 H* 0.27 H* B-Natriuretic Peptide 01/11/17 01/11/17 01/11/17 05:19 05:19 05:19 WBC 12.2 H Hgb 13.9 D Creatinine 0.88 Troponin I B-Natriuretic Peptide 387 H 01/11/17 05:19 WBC Hgb Creatinine Troponin I 0.25 H* B-Natriuretic Peptide - Imaging and Cardiology Chest Xray: report reviewed Echo: pending - EKG Interpretation EKG results cardiology: personally reviewed (ECG with atrial fibrillation with RVR, HR 126. ST depression noted in inferior and lateral leads.), other ( Telemetry reviewed with average HR previous 12 hours noted to be 64, sinus rhythm. PVCs and PACs noted.) Consult Discharge Plan - Plan Referrals: Cornelia Stephen, [employer] [Primary Care Provider] - <Mikey Jordan - Last Filed: 01/12/17 20:48> Date of Encounter: 01/11/17 Time of Encounter: 20:30 - Attending Attestation I have personally performed a face to face evaluation on this patient. I have reviewed and agree with the care plan. History and Exam by me shows: 1. NSTEMI - Pt reports one episode of heavy mid-sternal chest pain, described as an "elephant on my chest", occurred at rest, associated with feeling her heart racing and pounding, shortness of breath and nausea. Event lasted fifteen to twenty minutes, resolved spontaneously, with rest and self relaxation , breathing through the pain. She reports at least two weeks of feeling her heart rate was fast, with only one episode of chest pain the earlier in the evening 01/10/2017, She presented to the ER pain free. She demonstrates tropoin elevation in cresendo pattern, consistent with an acute ischemic event. Discussed risks and benefits of invasive versus non invasive strategy, elects to proceed with diagnostic LHC and revascularization if indicated. 2. A fib with RVR - pt notes two plus weeks of her heart racing and pounding. She notes more short of breath during this time, with markedly decreased exercise tolerence, noting much more short of breath with minimal activity. She presented to ER in A fib with RVR, ventricular rate subsequently controlled with IV diltiazem. She will need systemic anticoagulation for at least six weeks if does not spontaneously convert, and planned DC cardioversion at approximately six weeks. 3. Hypertension; Controlled on current meds. Assessment and Plan Discussion w patient/family: The assessment and plan as outlined above was discussed with the patient and/or family members who expressed understanding and agreement. All questions were answered. Thank you for involving us in the care of your patient. Please call with any questions. History of Present Illness History of present illness: Ms. Tatum is a 71 year old female All Systems Review: A 10-system review of systems was performed and is negative for pertinent findings except as documented above in the HPI. Physical Examination Vital Signs, Last 4 Hours Temp Pulse Resp BP Pulse Ox 01/11/17 21:10 97.5 F L 62 20 133/78 92 Results 01/11/17 05:19 01/12/17 16:16 Lab Results 01/10/17 01/11/17 01/11/17 22:58 05:19 05:19 WBC 12.2 H Hgb 13.9 D Hct 42.0 Plt Count 201 INR 1.3 APTT 36.8 H Sodium Potassium Chloride Carbon Dioxide BUN Creatinine Glucose Calcium Magnesium Total Bilirubin AST ALT Alkaline Phosphatase Troponin I 0.27 H* B-Natriuretic Peptide 01/11/17 01/11/17 01/11/17 05:19 05:19 05:19 WBC Hgb Hct Plt Count INR APTT Sodium 140 Potassium 3.3 L Chloride 108 Carbon Dioxide 22 BUN 19 D Creatinine 0.88 Glucose 161 H Calcium 8.8 Magnesium 1.8 Total Bilirubin 0.5 AST 21 ALT 21 Alkaline Phosphatase 91 Troponin I 0.25 H* B-Natriuretic Peptide 387 H
[2017-01-11] MEDS ORDERED: Ipratropium/Albuterol Neb 3 ML IH PRN (20:21)
[2017-01-11] MEDS: Potassium Chloride Elixir 20 MEQ/15 ML UDC PO SCH (21:53)
[2017-01-12] MEDS: *HR* Enoxaparin 80 MG/0.8 ML SYRINGE SQ SCH ×3 (01:16→23:42)
[2017-01-12] MEDS: MethylPREDNISolone 40 MG/ML VIAL IVP SCH ×3 (01:16→18:07)
[2017-01-12] MEDS: 0.9 % Sodium Chloride 1,000 ML IVC SCH (05:42)
[2017-01-12] MEDS: Potassium Chloride Elixir 20 MEQ/15 ML UDC PO SCH ×2 (08:53→19:54)
[2017-01-12] MEDS: Aspirin Enteric Coated 81 MG Tablet PO SCH (08:53)
[2017-01-12] MEDS: Diltiazem CD (24hr) 120 MG CAPSULE PO SCH (08:53)
[2017-01-12] MEDS: Cholecalciferol (D-3) 1,000 UNIT TABLET PO SCH (08:53)
[2017-01-12] MEDS: Losartan/HCTZ 50-12.5 TABLET PO SCH (08:53)
--- NOTE | 2017-01-12 12:35 | Cardiology Progress Note ---
Date of Encounter: 01/12/17 Time of Encounter: 11:00 Assessment and Plan (1) Atrial fibrillation with rapid ventricular response Current Visit: Yes Status: Acute Per cardiology: -On admission noted to be in atrial fibrillation with RVR. -Was placed on cardizem drip, now SR. -TTE with LVEf preserved, no wall motion abnormalities. -[id number] score 3 (age, gender, HTN). 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 Currently on therapeutic lovenox. -ON beta vicente started on cardizem CD 120mg daily, yesterday. -Average HR previous 12 hours noted to be 59, sinus bradycardia. -Of note, TSH 0.188-management per primary service. -Pending invasive cardiac work up, will decide regarding senior care anticoagulation. -Will continue to monitor. (2) NSTEMI (non-ST elevated myocardial infarction) Current Visit: Yes Status: Acute Per cardiology: -Admitted with chest pain. -Troponins 0.02, 0.16, 0.27, 0.25. -ECG with atrial fibrillation with RVR, ST depression noted. -Denies current chest pain. -On therapeutic lovenox. -ON asa, statin, beta vicente. -TTE with preserved LVEF, no wall motion abnormalities. -Plan for possible LHC in am pending respiratory status. Patient has significant cough. -Will hold lovenox tomorrow. -Will consult cardiac rehab phase one. -Will continue to monitor. Discussion w patient/family: The assessment and plan as outlined above was discussed with the patient who expressed understanding and agreement. All questions were answered. Thank you for involving us in the care of your patient. Please call with any questions. Discussed and reviewed with . Subjective Principal diagnosis: atrial fibrillation, NSTEMI Interval history: Patient states she feels that her cough/congestion is worse today. Patient denies chest pain. Denies fluttering/palpitations. Objective Vital Signs Temperature 97.7 F 01/12/17 07:54 Pulse Rate 52 01/12/17 07:54 Respiratory Rate 18 01/12/17 07:54 Blood Pressure 134/75 01/12/17 07:54 O2 Sat by Pulse Oximetry 92 01/12/17 07:54 Oxygen Delivery Oxygen Delivery Room Air General: Conversant, No Apparent Distress HEENT: Atraumatic, Normocephaly, Mucus Membranes Moist Neck: No JVD, Normal carotid pulses Cardiac: Reg Rate and Rhythm, Normal S1 and S2, No Murmur Lungs: Normal Breath Sounds, No Wheeze, Rales, Rhonchi, Other (Cough noted. ) Neuro: Alert and responsive, No focal deficits noted Abdomen: Soft, Non-Tender Skin: No rashes noted on visualized skin Musculoskeletal: No Chest Wall Tenderness Extremities: No Clubbing, No Cyanosis, No Edema, Normal Pulses Results 01/11/17 05:19 01/11/17 05:19 Lab Results Impressions Echocardiogram 01/10/17 17:16 Impressions: LVEF 65%. Mild concentric left ventricular hypertrophy. Mild left ventricular diastolic dysfunction. Trace mitral regurgitation. Normal tricuspid valve structure, mild TR Left Ventricular Wall Motion: Rest Echo Findings All wall segments showed normal motion. Findings: Study Quality * Technically adequate exam. ECG Findings * Normal sinus rhythm. Left Ventricle * LVEF 65%. * Normal LV chamber size, wall thickness and function. * Mild concentric left ventricular hypertrophy. * Mild left ventricular diastolic dysfunction. * There is no LV thrombus. Right Ventricle * Normal right ventricular structure and function. Left Atrium * Normal left atrial size. Right Atrium * Normal right atrial size. Aortic Valve * Trileaflet aortic valve. * Trileaflet aortic valve with normal function. Interatrial Septum * No evidence of PFO by color Doppler. Mitral Valve * Normal mitral valve structure. * Trace mitral regurgitation. Pulmonic Valve * Normal pulmonic valve structure and function. Aorta * Normally sized aortic root. Pericardium * The pericardium appears normal. Tricuspid Valve * Normal tricuspid valve structure, mild TR Device lead * A device lead was visualized in the right atrium and right ventricle. Active Medications Albuterol/Ipratropium (Duoneb) 3 ml IH [id number] PRN PRN Reason: Shortness Of Breath/Wheezing Stop: 07/13/17 20:22 Aspirin (Aspirin Ec) 81 mg PO DAILY [facility] Stop: 07/13/17 09:01 Last Admin: 01/12/17 08:53 Dose: 81 mg Atorvastatin Calcium (Lipitor) 40 mg PO HS [facility] Stop: 07/12/17 21:01 Last Admin: 01/11/17 21:53 Dose: 40 mg Carvedilol (Coreg) 25 mg PO BIDWM [facility] PRN Reason: Protocol Stop: 07/12/17 21:01 Last Admin: 01/12/17 08:53 Dose: 25 mg Diltiazem HCl (Cardizem Cd) 120 mg PO DAILY [facility] Stop: 07/14/17 09:01 Last Admin: 01/12/17 08:53 Dose: 120 mg Docusate Sodium (Colace) 100 mg PO BID PRN PRN Reason: Constipation Stop: 07/12/17 17:13 Enoxaparin Sodium (Lovenox) 80 mg 1 mg/kg (80 mg) SQ Q12H [facility] PRN Reason: Protocol Stop: 07/13/17 00:01 Last Admin: 01/12/17 01:16 Dose: 80 mg Guaifenesin (Mucinex) 1,200 mg PO BID [facility] Stop: 07/13/17 21:01 Last Admin: 01/12/17 08:53 Dose: 1,200 mg HCTZ/Losartan Potassium (Hyzaar 50/12.5) 1 each PO DAILY [facility] Stop: 07/13/17 09:01 Last Admin: 01/12/17 08:53 Dose: 1 each Ceftriaxone Sodium 1,000 mg/ (Sterile Water) 10 mls @ 300 mls/hr IVPB Q24H [facility] Stop: 07/12/17 19:01 Last Admin: 01/11/17 17:04 Dose: 300 mls/hr Azithromycin 500 mg/ Dextrose 250 mls @ 252 mls/hr IVPB Q24H [facility] Stop: 07/12/17 19:01 Last Admin: 01/11/17 17:09 Dose: 252 mls/hr Sodium Chloride (0.9 % Sodium Chloride) 1,000 mls @ 70 mls/hr IVC .[id number] [facility] Stop: 07/12/17 18:16 Last Admin: 01/12/17 05:42 Dose: 70 mls/hr Magnesium Hydroxide (Milk Of Magnesia Conc) 10 ml PO DAILY PRN PRN Reason: Indigestion Stop: 07/12/17 17:13 Methylprednisolone (Solu-Medrol) 40 mg IVP Q8HR [facility] Stop: 07/13/17 00:01 Last Admin: 01/12/17 08:53 Dose: 40 mg Naloxone HCl (Narcan) 0.4 mg IVP Q2MIN PRN PRN Reason: Opioid Reversal Stop: 07/12/17 17:13 Non-Formulary Medication (Cyanocobalamin (B-12)) 1 ml IM QMONTH [facility] Stop: 07/12/17 17:16 Omeprazole (Prilosec) 20 mg PO DAILY [facility] Stop: 07/13/17 09:01 Last Admin: 01/12/17 08:53 Dose: 20 mg Potassium Chloride (Potassium Chloride) 40 meq PO BID [facility] Stop: 07/13/17 21:01 Last Admin: 01/12/17 08:53 Dose: 40 meq Promethazine HCl/Codeine (Phenergan/Codeine) 5 - 10 ml PO Q6HR PRN; Protocol PRN Reason: Cough Stop: 07/12/17 17:16 Vitamin D (Vitamin D) 1,000 unit PO DAILY [facility] Stop: 07/13/17 09:01 Last Admin: 01/12/17 08:53 Dose: 1,000 unit Laboratory Tests 01/12/17 04:50 TSH 0.188 L - Imaging and Cardiology Chest Xray: report reviewed Echo: report reviewed - EKG Interpretation EKG results cardiology: other (Telemetry reviewed with average HR previous 12 hours noted to be 59, sinus bradycardia. PVC and PACs noted.) Consult Discharge Plan - Plan Referrals: Cornelia Stephen, ELECTRIC METER TECHNICIAN [Primary Care Provider] -
[2017-01-12] MEDS ORDERED: Furosemide 20 MG/2 ML VIAL IVP ONE ×2 (15:40→18:31)
[2017-01-12] MEDS ORDERED: Saline Nasal Spray 44 ML BOTTLE NS PRN (15:42)
[2017-01-12 16:45] LABS: BUN/Creatinine Ratio 23 (6-26); Blood Urea Nitrogen 21 mg/dL (7-20); Calcium 9.1 mg/dL (8.6-10.8); Carbon Dioxide 22 mEq/L (19-29); Chloride 110 mEq/L (98-109); Glucose 137 mg/dL (70-99); Magnesium 1.9 mg/dL (1.6-2.6); Osmolality,Calculated 295 (280-300); Phosphorous 3.1 mg/dL (2.3-4.7); Sodium 140 mEq/L (136-145); eGFR For African Americans > 60 (> 60); eGFR For Non-African Americans > 60 (> 60)
[2017-01-12 17:07] LABS: Triiodothyronine (T3) Total 0.51 ng/mL (0.58-1.59)
[2017-01-12] MEDS: Azithromycin 500 MG in D5% in Water 250 ML IVPB SCH (18:05)
[2017-01-12] MEDS: cefTRIAXone 1,000 MG in Water for inj. (sterile) 10 ML IVPB SCH (18:06)
[2017-01-12] MEDS: Loratadine 10 MG TABLET PO SCH (18:07)
--- NOTE | 2017-01-12 18:17 | Internal Med Progress Note ---
Date of Encounter: 01/12/17 Time of Encounter: 15:00 - Assessment and plan (1) Atrial fibrillation with rapid ventricular response Current Visit: Yes Status: Acute (2) COPD exacerbation Current Visit: Yes Status: Acute (3) NSTEMI (non-ST elevated myocardial infarction) Current Visit: Yes Status: Acute (4) Volume overload Current Visit: Yes Status: Acute Qualifiers: Hypervolemia type: unspecified Qualified Code(s): E87.70 - Fluid overload, unspecified - Time Spent With Patient Plan summary Patient has significant fluid overload she gained 3 kg since admission, symptom of fluid overload, add Lasix, cut back on his steroids, continue Mucinex, continue current antibiotic, chest x-ray ordered and reviewed, possible cardiac catheterization tomorrow. CBC basic metabolic profile and magnesium phosphorous at a.m., 25 - 35 minutes - Subjective Interval history: Patient is complaining of paroxysmal nocturnal dyspnea, productive cough with clear sputum when she lay down her back - Constitutional Vitals: Temp Pulse Resp BP Pulse Ox 97.8 F 51 16 142/89 97 01/12/17 16:12 01/12/17 16:12 01/12/17 16:12 01/12/17 16:12 01/12/17 16:12 General appearance: Present: A&O X 3, pleasant, no acute distress, answers questions appropriately - Head Head exam: Present: atraumatic, normocephalic - Neck Neck exam general surgery: Present: supple, trachea midline. Absent: lymphadenopathy - Respiratory Respiratory exam: Present: decreased breath sounds, rhonchi. Absent: accessory muscle use, rales, wheezes - Cardiovascular Cardiovascular exam: Present: RRR, +S1, +S2. Absent: diastolic murmur, gallop, rubs, systolic murmur - Extremities Exam Extremities exam: Present: warm, radial pulses palpable and symmetrical. Absent : calf tenderness, cyanotic, pedal edema Internal Medicine: Result - Labs CBC & Chem 7: 01/11/17 05:19 01/12/17 16:16 Labs: BMP 01/12/17 16:16 Sodium 140 Potassium 4.0 Chloride 110 H Carbon Dioxide 22 BUN 21 H Creatinine 0.92 Glucose 137 H Calcium 9.1 - ABG Interpretation ABG results: PT/INR, D-dimer PT 13.7 Seconds (9.4-12.1) H 01/11/17 05:19 D-Dimer 2655 ng/mLFEU (0-500) H 01/10/17 09:45 - Impressions Impressions Echocardiogram 01/10/17 17:16 Impressions: LVEF 65%. Mild concentric left ventricular hypertrophy. Mild left ventricular diastolic dysfunction. Trace mitral regurgitation. Normal tricuspid valve structure, mild TR Left Ventricular Wall Motion: Rest Echo Findings All wall segments showed normal motion. Findings: Study Quality * Technically adequate exam. ECG Findings * Normal sinus rhythm. Left Ventricle * LVEF 65%. * Normal LV chamber size, wall thickness and function. * Mild concentric left ventricular hypertrophy. * Mild left ventricular diastolic dysfunction. * There is no LV thrombus. Right Ventricle * Normal right ventricular structure and function. Left Atrium * Normal left atrial size. Right Atrium * Normal right atrial size. Aortic Valve * Trileaflet aortic valve. * Trileaflet aortic valve with normal function. Interatrial Septum * No evidence of PFO by color Doppler. Mitral Valve * Normal mitral valve structure. * Trace mitral regurgitation. Pulmonic Valve * Normal pulmonic valve structure and function. Aorta * Normally sized aortic root. Pericardium * The pericardium appears normal. Tricuspid Valve * Normal tricuspid valve structure, mild TR Device lead * A device lead was visualized in the right atrium and right ventricle. Chest X-Ray 01/12/17 15:39 IMPRESSION: No acute disease. D/ / Radha Guadarrama Cha, MD / Radha Guadarrama Cha, MD Interpreting Provider: Radha Guadarrama Cha, MD Consult Discharge Plan - Plan Referrals: Cornelia Stephen, [employer]OOK [Primary Care Provider] -
[2017-01-13 03:13] LABS: Basophils % 0.2 %; Hematocrit 39.9 % (35.3-44.9); Hemoglobin 13.6 g/dL (11.5-15.4); Lymphocytes # 1.5 K/mcL (0.6-4.6); Mean Corpuscular HGB Conc 34.1 g/dL (31.6-35.5); Mean Corpuscular Hemoglobin 31.3 pg (28.0-33.3); Mean Corpuscular Volume 91.9 fL (83.0-100.0); Mean Platelet Volume 10.2 fL (9.4-12.4); Monocytes # 0.6 K/mcL (0.0-1.3); Monocytes % 2.7 %; Platelet Count 235 K/mcL (140-400); Red Blood Count 4.34 M/mcL (3.82-4.97); Red Cell Distribution Width 14.1 % (11.5-14.5); Segmented Neutrophils % 88.1 %
[2017-01-13 03:26] LABS: BUN/Creatinine Ratio 28 (6-26); Blood Urea Nitrogen 23 mg/dL (7-20); Calcium 9.3 mg/dL (8.6-10.8); Carbon Dioxide 26 mEq/L (19-29); Chloride 107 mEq/L (98-109); Glucose 128 mg/dL (70-99); Osmolality,Calculated 295 (280-300); Potassium 3.9 mEq/L (3.5-4.5); Sodium 140 mEq/L (136-145); eGFR For African Americans > 60 (> 60); eGFR For Non-African Americans > 60 (> 60)
--- NOTE | 2017-01-13 08:21 | Internal Med Progress Note ---
Date of Encounter: 01/13/17 Time of Encounter: 08:18 - Assessment and plan (1) Atrial fibrillation with rapid ventricular response Current Visit: Yes Status: Acute (2) COPD exacerbation Current Visit: Yes Status: Acute (3) NSTEMI (non-ST elevated myocardial infarction) Current Visit: Yes Status: Acute (4) Volume overload Current Visit: Yes Status: Acute Qualifiers: Hypervolemia type: unspecified Qualified Code(s): E87.70 - Fluid overload, unspecified - Time Spent With Patient Patient had significant fluid overload resolved after receiving 2 doses of Lasix overnight, patient had leukocytosis with left shift with no evidence of infection chest x-ray is negative for pneumonia. Patient does not have any dysuria, patient does not have any fever or chills, no diarrhea, had leukocytosis most likely secondary to high dose of steroids she received. We cut back steroid dose. Awaiting cardiology for cardiac catheterization. Possible discharge later today if cardiac catheter is negative and okay with cardiology team 25 - 35 minutes - Subjective Interval history: Patient denies any chest pain or shortness of breath today. Patient stated that her orthopnea and paroxysmal nocturnal dyspnea resolved. Patient denies any fever or chills. Patient denies any cough. Patient denies any dysuria or hematuria. Patient denies any change in her bowel movement, patient walk around the unit 3 times today without any problem - Constitutional Vitals: Temp Pulse Resp BP Pulse Ox 98.0 F 61 15 131/85 97 01/13/17 07:59 01/13/17 07:59 01/13/17 07:59 01/13/17 07:59 01/13/17 07:59 General appearance: Present: A&O X 3, pleasant, no acute distress, answers questions appropriately - Head Head exam: Present: atraumatic, normocephalic - Neck Neck exam general surgery: Present: supple, trachea midline. Absent: lymphadenopathy - Respiratory Respiratory exam: Present: decreased breath sounds. Absent: accessory muscle use, rales, rhonchi, wheezes - Cardiovascular Cardiovascular exam: Present: +S1, +S2. Absent: diastolic murmur, gallop, rubs , systolic murmur - Extremities Exam Extremities exam: Present: warm, radial pulses palpable and symmetrical. Absent : calf tenderness, cyanotic, pedal edema - Neurological Exam Neurological exam: Present: CN II-XII intact, oriented X3, no focal deficits. Absent: pronater drift, facial droop, speech deficit Internal Medicine: Result - Labs CBC & Chem 7: 01/13/17 02:59 01/13/17 02:59 Labs: Short CBC 01/13/17 Range/Units 02:59 WBC 21.6 H D (4.3-11.1) K/mcL Hgb 13.6 (11.5-15.4) g/dL Hct 39.9 (35.3-44.9) % Plt Count 235 (140-400) K/mcL Neutrophils # 19.0 H (1.6-8.9) K/mcL BMP 01/12/17 01/13/17 16:16 02:59 Sodium 140 140 Potassium 4.0 3.9 Chloride 110 H 107 Carbon Dioxide 22 26 BUN 21 H 23 H Creatinine 0.92 0.82 Glucose 137 H 128 H Calcium 9.1 9.3 - ABG Interpretation ABG results: PT/INR, D-dimer PT 13.7 Seconds (9.4-12.1) H 01/11/17 05:19 D-Dimer 2655 ng/mLFEU (0-500) H 01/10/17 09:45 - Impressions Impressions Chest X-Ray 01/12/17 15:39 IMPRESSION: No acute disease. D/ / Radha Guadarrama Cha, MD / Radha Guadarrama Cha, MD Interpreting Provider: Radha Guadarrama Cha, MD Consult Discharge Plan - Plan Referrals: Cornelia Stephen, INDUSTRIAL HEALTH AND SAFETY PROFESSOR [Primary Care Provider] -
[2017-01-13] MEDS: Losartan/HCTZ 50-12.5 TABLET PO SCH (08:25)
[2017-01-13] MEDS: Potassium Chloride Elixir 20 MEQ/15 ML UDC PO SCH ×2 (08:25→20:45)
[2017-01-13] MEDS: Loratadine 10 MG TABLET PO SCH (08:26)
[2017-01-13] MEDS: Diltiazem CD (24hr) 120 MG CAPSULE PO SCH (08:26)
[2017-01-13] MEDS: predniSONE 10 MG TABLET PO SCH (08:26)
[2017-01-13] MEDS: Cholecalciferol (D-3) 1,000 UNIT TABLET PO SCH (08:26)
[2017-01-13] MEDS: Aspirin Enteric Coated 81 MG Tablet PO SCH (08:26)
--- NOTE | 2017-01-13 10:20 | Event Note ---
Date of Encounter: 01/13/17 Time of Encounter: 09:00 - Cardiology Event Note Patient states breathing is much better today. Denies chest pain. Able to tolerate laying flat. Risks versus benefits of LHC explained to patient. Patient states understanding and agreeable to proceed. updated on WBC of 21.6 while on steroids. Further recommendations pending [facility].
[2017-01-13] MEDS ORDERED: Verapamil 5 MG/2 ML VIAL ONE (11:19)
[2017-01-13] MEDS ORDERED: *HR* Heparin 10,000 UNIT/10 ML VIAL ONE (11:20)
[2017-01-13] MEDS ORDERED: Nitroglycerin 1,000 MCG/10 ML VIAL IV ONE (11:20)
[2017-01-13] MEDS ORDERED: 0.9 % Sodium Chloride 1,000 ML ONE (11:20)
[2017-01-13] MEDS ORDERED: Heparin 1,000 UNITS/500 mL NS 500 ML ONE (11:20)
[2017-01-13] MEDS ORDERED: *HR* FentaNYL (PF) 100 MCG/2 ML VIAL ONE (11:34)
[2017-01-13] MEDS ORDERED: *HR* Midazolam HCl 2 MG/2 ML VIAL ONE (11:34)
--- NOTE | 2017-01-13 12:15 | Invasive Diagnostic Lab Proc ---
Name: Juliet Tatum Date of Study: 01/13/2017 Date: 1945 Ht: 68.1in Medical Record#: [id number] Age: 71 Wt: 182.98lb Gender: Female BSA: 1.97 Order #: [id number] BMI: 27.73 Physicians Procedure Physician: Ilia Quiles MD, [facility] Referring MD: Referring MD: Staff Name Position Time In Salma Sotelo RT Monitor 11:30 AM Clarice Vaughan RT (R) Scrub 11:30 AM Kary Morrison RN Rn Palliative 11:30 AM Indications Indication Non-Stemi Procedures Performed Procedure L HRT ARTERY/VENTRICLE ANGIO Pre-Procedure Checklist Informed consent is complete signed and on chart. H&P is on chart. ID band is on and ID verified with patient. Patient NPO for procedure The procedure was described for the patient and questions were answered. Blood Pressure: 131/85 ECG is on chart. Rhythm: NSR Plan of Care Patient will tolerate the procedure without complications. Adequate level of comfort will be maintained. Hemodynamics will remain stable Patient will recover from procedure without complications. Respiratory function will be maintained. Cardiac rhythm will remain stable. Patient temperature will be maintained. Patient and/or family have verbalized understanding of the procedure. Patient Education Chief Complaint/Reason for Test: Cardiac Cath Developmental Category: Geriatric (65+ years) Developmentally Appropriate for Age: Yes Learning Barriers: None Education Needs: Procedure Education Method: Verbal Information Taught: Cardiac Cath Educational Evaluation: Able to repeat information Intravenous Access Time IV Size Location DC'd Fluid/Drip Rate Units RN 20g 1 02/20" Patent On Arrival 0.9NaCl ml/hr Alina Hardin RN Allergies No Known Allergies Vital Signs Time BP (mmHg) HR (bpm) O2 Sat. RR (bpm) LOC 131 / 85 61 97 % 16 5 = Fully awake and oriented or at pre-proc level 11:32 AM / % 5 = Fully awake and oriented or at pre-proc level 11:36 AM / % 4 = Oriented but drowsy 11:36 AM / % 4 = Oriented but drowsy 11:33 AM 185 / 89 46 98 % 18 11:38 AM 183 / 91 55 95 % 20 11:43 AM 173 / 85 50 95 % 18 11:48 AM 139 / 69 60 95 % 19 11:53 AM 163 / 74 67 93 % 18 Procedural Medications Time Medication Dose Units Method Given By 11:32 AM Oxygen 2 L/min nasal cannula Kary Morrison RN 11:34 AM Versed 2 mg Intravenous Kary Morrison RN 11:34 AM Fentanyl 50 mcg Intravenous Kary Morrison RN 11:42 AM Lidocaine 2% 0.5 ml Subcutaneous Ilia Quiles MD, FACC 11:45 AM Heparin 4000 units Nitroglycerin 200 mcg Verapamil 2.5 mg Intraarterial Ilia Quiles MD, [facility] ASA Classification: CLASS II- Mild systemic disease (i.e. well-controlled diabetes, hypertension, asthma, cigarette smoking) [place] Score Preprocedure Postprocedure Activity 2- Moves 4 extremities sustained head lift Activity 2- Moves 4 extremities sustained head lift Circulation 2- SBP +/= 20 points of pre-anesthetic level Circulation 2- SBP +/= 20 points of pre-anesthetic level Consciousness 2- Awake and alert oriented x 3 Consciousness 2- Awake and alert oriented x 3 O2 Saturation 2- Able to maintain O2 satruation of 92% on room air O2 Saturation 2- Able to maintain O2 satruation of 92% on room air Respiratory 2- Able to deep breathe and cough well Respiratory 2- Able to deep breathe and cough well Total Score 10 Total Score 10 Contrast Agent: Isovue Diagnostic Contrast: 46 ml Total Contrast: 46 ml Fluoro Dose: 198 mGy Procedure Log Time Note Enter By 11:30 AM 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 tsites 11:30 AM Procedure start 11:30 tsites 11:30 AM Patient charges- Angio tray pack, Navilyst 3mm J, Pulse Oximetry and ACIST tubing and transducer tsites 11:31 AM CathStat 11:32 AM Time: 11:32 Oxygen on at 2 L/min per nasal cannula by Kary Morrison RN tsites 11:32 AM Time: :32 Patient comfortable and pain free: Yes [facility] : AM Time: :32LOC: 5 = Fully awake and oriented or at pre-proc level [facility] :32 AM Clinical Presentation: Non-STEMI [facility] :32 AM Vitals capture started with the following parameters, Patient=Adult, Interval=5 min, Initial Lcnkoccu=301 mmHg, Deflation Rate=5 mmHg, Cuff placed on Right Arm 11:32 AM Hair removed from procedure site in holding area using clippers. Right wrist and right groin prepped with Chloraprep by Jose Armando Abbott (R), safety strap applied then patient was draped. Skin intact. [facility] 11:33 AM Recorded ECG: HR=50 Condition=Condition 1 11:33 AM HR=46 bpm, OZWF=720/89 mmhg, SpO2=98.0 %, Resp=18 B/min 11:34 AM ASA Class CLASS II- Mild systemic disease (i.e. well-controlled diabetes, hypertension, asthma, cigarette smoking) [facility] 11:34 AM Time: 11:34 Versed 2 mg Intravenous Given by Kary Morrison RN [facility] 11:35 AM Time: 11:34 Fentanyl 50 mcg Intravenous Given by Kary Morrison RN [facility] 11:36 AM Time: 11:36 Patient comfortable and pain free: Yes :36 AM Time: 11:36LOC: 4 = Oriented but drowsy kk 11:38 AM HR=55 bpm, HYHQ=466/91 mmhg, SpO2=95.0 %, Resp=20 B/min 11:42 AM Pressure channel 1 zero failed. 11:42 AM Pressure channel 1 zeroed. 11:42 AM Time out performed according to hospital policy :42 AM Time: 11:42 .5 ml Lidocaine 2% to right radial Subcutaneous Given by Ilia Quiles MD, [facility] 11:43 AM HR=50 bpm, DLFO=806/85 mmhg, SpO2=95.0 %, Resp=18 B/min 11:44 AM Access obtained by percutaneous puncture. 6Fr 10cm Terum[address] sheath placed in right Radial artery. [id number] [facility] 11:45 AM Time: 11:45 Patient given 4,000 units Heparin, 200 mcg Nitroglycerin, and 2.5 mg Verapamil Intraarterial by Ilia Quiles MD, [facility] 11:45 AM 5Fr TIG catheter inserted over the wire [facility] kkall 11:45 AM wire removed kk 11:46 AM 0.035 145cm VSI Mike-Torque wire [id number] k[place]ner 11:47 AM wire removed kkner 11:48 AM HR=60 bpm, RQUA=906/69 mmhg, SpO2=95.0 %, Resp=19 B/min 11:48 AM Recorded Pressure: Ao, HR=58, Condition=Condition 1 (Aorta) Ao 103/66/84 11:48 AM LCA angiography performed in multiple views. [place] 11:50 AM TIG repositioned into RCA [place] 11:50 AM RCA angiography performed in multiple views. [place] 11:50 AM Recorded Pressure: Ao, HR=59, Condition=Condition 1 (Aorta) Ao 117/73/94 11:51 AM Lesion found in Mid RCA. Pre Stenosis: 20 Pre ALEXA Flow: kkall 11:51 AM Coronary Dominance: right all 11:51 AM Catheter removed 11:51 AM Time: 11:36 Patient comfortable and pain free: Yes allner 11:51 AM Time: 11:36LOC: 4 = Oriented but drowsy kkall 11:51 AM 5Fr TIG catheter inserted over the wire [facility] 11:51 AM wire removed 11:52 AM Catheter selectively placed in left ventricle [place] 11:53 AM Recorded Pressure: LV, HR=57, Condition=Condition 1 (Left Ventricle) LV 113/6/17 11:53 AM Bolus angiogram of left Ventricle complete: 10 ml/sec for a total of 20 mls [place] 11:53 AM HR=67 bpm, JMRZ=795/74 mmhg, SpO2=93.0 %, Resp=18 B/min 11:53 AM Recorded Pressure: LV, Ao, HR=56, Condition=Condition 1 (Left Ventricle) LV 139/-1/10, (Aorta) Ao 121/58/86 11:55 AM Left Main Coronary Artery with 0% stenosis [place] 11:55 AM Mid/Distal Left Anterior Descending Coronary Artery and diagonal branches with 0% stenosis. If graft is supplying this area, 0 % stenosis [place] 11:55 AM Circumflex, Obtuse Marginal, Left Posterior Descending, and Left Posterolateral Coronary Arteries with 0 % stenosis. If graft is supplying this area, 0 % stenosis [place] 11:55 AM Right Coronary, Right Posterior Descending Arteries with Right Posterolateral and Acute Marginal branches with 20 % stenosis. If graft is supplying this area, 0 % stenosis [place] 11:55 AM Ramus with 0% stenosis. If graft is supplying this area, 0 % stenosis [place] 11:55 AM Procedure completed at 11:55 k[place] 11:55 AM Sign out completed: Radiation Dose 197.73 mGy Fluoro Time: 2.2 Isovue 370 - 200ml contrast 46 ml given by Ilia Quiles MD, FACC. Complications: NoneCardiac Rehab Consult needed: NoConfirmed administered medications: Yes [place] 11:55 AM Isovue 370 - 200ml,1 Bottle(s) used. [place] 11:55 AM 10 ml air in Vasc Band. [place] 11:56 AM Estimated Blood Loss: minimal [place] 11:56 AM Post ECG Sinus Bradycardia [place] 11:56 AM Post Blood Pressure 163/74 [place] 11:57 AM 11:57 Post Pulses Bilateral DP & PT 1+ [place] 11:57 AM Information taught Cardiac Cath and Vasc Band [place] 11:57 AM Education needs Procedure, Plan of Care, and Responsibilities of Patient in Care [place] 11:58 AM Learning barriers :None [place] 11:58 AM Education Methods Verbal [place] 11:58 AM Education evaluation Able to repeat information [place] 11:58 AM Site status No bleeding/hematoma - Rt Wrist as reported by Clarice Vaughan RT (R) at 11:58 [place] 11:58 AM Plavix, Effient or Brilinta given No [place] 11:58 AM Delay to floor No [place] 11:58 AM Patient out of room: 11:58 [place] 11:58 AM Family placed in consult room. [place] 11:58 AM Complications: None [place] 11:59 AM Fluoro Time: 2.2 [place] 11:59 AM Isovue 370 - 200ml contrast 46 ml given by Ilia Quiles MD, FACC. [place] 11:59 AM Radiation Dose 197.73 mGy [place] 12:01 PM Lesion found in Proximal LAD. Pre Stenosis: 20 Pre ALEXA Flow: kk[place]ner 12:01 PM Proximal Left Anterior Descending Coronary Artery with 20% stenosis. If graft is supplying this territory, 0 % stenosis. clare 12:04 PM Report given to Krzysztof GILL Pt taken to E Room #32. 12:03 clare Complications Complication None None Hemodynamics Pressures Site Systolic/A Wave Diastolic/V Wave Mean AO 103 66 84 AO 117 73 94 LV 113 6 17 LV 139 -1 10 AO 121 58 86 Post Procedure Information Blood Pressure: 163/74 mmHg Rhythm: Sinus Bradycardia Post procedural instructions were given Site Checks Time Location Status Staff Sheath In? Note 11:58 AM Rt Wrist No bleeding/hematoma Clarice Vaughan RT (R) Pulses Time Site Pre-Procedure Post-Procedure Note Bilateral radial 2+ Bilateral DP & PT 1+ 11:57:00 AM Bilateral DP & PT 1+ Updated by Salma Sotelo RT (R) on 01/13/2017 12:08:23 PM electronically signed on 01/13/2017 12:09:00 PM with status of Final
--- NOTE | 2017-01-13 17:23 | Event Note ---
Date of Encounter: 01/13/17 Time of Encounter: 17:21 - Cardiology Event Note Per discussion with , no intervention necessary on [facility]. Will start xarelto 20mg starting tomorrow. Xarelto assistance card given to patient, patient's co-pay for medication will be $45/month. Cardiology will sign off and will follow in outpatient setting. Follow up set.
[2017-01-13] MEDS: Azithromycin 500 MG in D5% in Water 250 ML IVPB SCH (18:56)
[2017-01-13] MEDS: cefTRIAXone 1,000 MG in Water for inj. (sterile) 10 ML IVPB SCH (18:57)
--- NOTE | 2017-01-13 19:22 | Electrocardiograph Report ---
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
[2017-01-14 07:49] LABS: Basophils # 0.1 K/mcL (0.0-0.2); Basophils % 0.8 %; Eosinophils % 0.1 %; Hematocrit 43.3 % (35.3-44.9); Hemoglobin 14.5 g/dL (11.5-15.4); Lymphocytes # 2.1 K/mcL (0.6-4.6); Lymphocytes % 12.4 %; Mean Corpuscular HGB Conc 33.5 g/dL (31.6-35.5); Mean Corpuscular Hemoglobin 30.9 pg (28.0-33.3); Mean Corpuscular Volume 92.3 fL (83.0-100.0); Mean Platelet Volume 10.6 fL (9.4-12.4); Monocytes # 1.3 K/mcL (0.0-1.3); Neutrophils # 12.4 K/mcL (1.6-8.9); Platelet Count 217 K/mcL (140-400); Red Blood Count 4.69 M/mcL (3.82-4.97); Red Cell Distribution Width 14.5 % (11.5-14.5); Segmented Neutrophils % 73.7 %
[2017-01-14 07:56] VITALS: BP 152/85
[2017-01-14 08:10] LABS: BUN/Creatinine Ratio 25 (6-26); Blood Urea Nitrogen 21 mg/dL (7-20); Calcium 9.1 mg/dL (8.6-10.8); Carbon Dioxide 28 mEq/L (19-29); Chloride 106 mEq/L (98-109); Glucose 88 mg/dL (70-99); Magnesium 1.9 mg/dL (1.6-2.6); Osmolality,Calculated 292 (280-300); Potassium 4.3 mEq/L (3.5-4.5); Sodium 140 mEq/L (136-145); eGFR For African Americans > 60 (> 60); eGFR For Non-African Americans > 60 (> 60)
[2017-01-14] MEDS: predniSONE 10 MG TABLET PO SCH (08:30)
[2017-01-14] MEDS: Loratadine 10 MG TABLET PO SCH (08:31)
[2017-01-14] MEDS: Losartan/HCTZ 50-12.5 TABLET PO SCH (08:31)
[2017-01-14] MEDS: Diltiazem CD (24hr) 120 MG CAPSULE PO SCH (08:31)
[2017-01-14] MEDS: Cholecalciferol (D-3) 1,000 UNIT TABLET PO SCH (08:31)
[2017-01-14] MEDS: Aspirin Enteric Coated 81 MG Tablet PO SCH (08:31)
[2017-01-14] MEDS: Potassium Chloride Elixir 20 MEQ/15 ML UDC PO SCH (08:31)
--- NOTE | 2017-01-14 09:19 | Discharge Summary ---
Date of Encounter: 01/14/17 Time of Encounter: 09:00 - Discharge Diagnosis (1) Atrial fibrillation with rapid ventricular response Priority: Primary Status: Acute (2) COPD exacerbation Priority: Secondary Status: Acute (3) NSTEMI (non-ST elevated myocardial infarction) Priority: Secondary Status: Acute (4) Volume overload Priority: Secondary Status: Acute Qualifiers: Hypervolemia type: other Qualified Code(s): E87.79 - Other fluid overload - Discharge Medications Prescriptions: Diltiazem CD (24hr) [Cardizem CD] 120 mg PO DAILY #30 cap.er.24h predniSONE [PredniSONE] 30 mg PO DAILY 6 Days tablet Rivaroxaban [Xarelto] 20 mg PO 1700 #30 tablet Home Medications: Aspirin [Lo-Dose Aspirin EC] 81 mg PO DAILY 01/10/17 [History] Carvedilol [Coreg] 25 mg PO BID 01/10/17 [History] Cholecalciferol (D-3) [Vitamin D] 1,000 unit PO DAILY 01/10/17 [History] Cyanocobalamin (B-12) [Vitamin B12] 1 ml IM QMONTH 01/10/17 [History] Losartan/Hydrochlorothiazide [Losartan-Hctz 50-12.5 mg Tab] 1 tab PO DAILY 01/10 [History] Multivit-Min/FA/Lycopen/Lutein [A Thru Z Select Multivit Tab] 1 tab PO DAILY [History] Pantoprazole Sodium [Protonix] 40 mg PO DAILY 01/10/17 [History] Promethazine/Codeine [Phenergan/Codeine] 5 - 10 ml PO Q6HR PRN 01/10/17 [History ] Ustekinumab [STELARA (For Outpatient Infusion)] 90 mg SQ Q3M 01/10/17 [History] Rivaroxaban [Xarelto] 20 mg PO 1700 #30 tablet 01/14/17 [Rx] predniSONE [PredniSONE] 30 mg PO DAILY 6 Days tablet 01/14/17 [Rx] Diltiazem CD (24hr) [Cardizem CD] 120 mg PO DAILY #30 cap.er.24h 01/15/17 [Rx] Allergies/Adverse Reactions: 3 Allergy/AdvReac Type Severity Reaction Status Date / Time No Known Allergies Allergy Verified 01/10/17 09:59 Procedures/tests Complete & Pending: Procedures Performed prior 72 hours Category Date Time Status CL Cardiac Catheterization [CL] Routine 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 01/13/17 10:19 Ordered Date of admission: 01/10/17 17:12 Primary care physician: Cornelia Stephen CNP Consults: 01/10/17 18:22 Consult to Cardiology [CONS] Routine Comment: Consulting Provider: Rasta Cid Reason for Consult: NSTEMI/Afib with RVR Call Completed: Yes 01/12/17 12:38 Consult to Cardiac Rehabilitation-Phase1 [CONS] Routine Comment: Reason for Consult: NSTEMI Call Completed: No Discharging clinician: Ivy Mccall Anticipated date of discharge: 01/14/17 - Patient Status Disposition: Home, Self-Care Condition: Good Functional capacity at discharge: independent ambulation Overall status at discharge: patient is progressing back to baseline - Discharge Instructions Instructions: Prednisone (By mouth), Rivaroxaban (By mouth), Myocardial Infarction (DC), Atrial Fibrillation (DC), Chest Pain (DC) Follow Up With: Cornelia Stephen CNP [Primary Care Provider] - 01/17/17 11:30 am Mikey Jordan DO [Partnered Physician] - (1 week) - Diet and Activity Activity: increase activity as tolerated Diet: low fat, low cholesterol, low salt diet Hospital course: Ms. Tatum is a 71 year old female with history of COPD who presented to the ER with complaints of shortness of breath and palpitations. She was diagnosed with atrial fibrillation with rapid ventricular response and COPD exacerbation. She was started on intravenous Cardizem drip and also placed on treatment for COPD with steroids and bronchodilators. Patient also had did rise in her troponins to 0.27. Cardiology was consulted and per their evaluation, they recommended left heart catheterization. Patient underwent left heart catheterization on 01/13/17 and was found to have nonobstructive disease. She did not require any stents. Patient is clinically improved since then and is doing much better overall. She is clinically stable for discharge home. Her heart rate is better controlled and she will be discharged home today. She will complete a steroid taper and will continue Cardizem 120 mg. - Time Spent with Patient Total time spent providing and/or coordinating discharge services: Greater than 30 minutes (32 min) - Constitutional Vitals: Temp Pulse Resp BP Pulse Ox 98 F 55 16 152/85 96 01/14/17 07:55 01/14/17 07:55 01/14/17 04:44 01/14/17 07:55 01/14/17 04:44 General appearance: Present: A&O X 3, pleasant, no acute distress, answers questions appropriately - Respiratory Respiratory exam: Present: CTAB. Absent: accessory muscle use, rales, rhonchi, wheezes - Cardiovascular Cardiovascular exam: Present: RRR, +S1, +S2. Absent: diastolic murmur, gallop, rubs, systolic murmur - Extremities Exam Extremities exam: Present: warm, radial pulses palpable and symmetrical. Absent : calf tenderness, cyanotic, pedal edema - Neurological Exam Neurological exam: Present: CN II-XII intact, oriented X3, no focal deficits. Absent: facial droop, speech deficit - Skin Skin exam: Present: dry, intact
[2017-01-14] MEDS ORDERED: *HR* Rivaroxaban 10 MG TABLET PO SCH (17:00)
[2017-01-17] MEDS ORDERED: Cyanocobalamin (B-12) 1,000 MCG/ML VIAL IM SCH (09:00)
== END 2017-01-14 11:11 | disposition home or self-care (01) | DRG 281 ==
LOC: EMEROO 09:23 → 2NENU 09:23 → SUATTDRO 17:12
PROVIDERS: ADMIT Internal Medicine; ATTEND Internal Medicine

== ENCOUNTER 2017-02-18 13:01 | Inpatient (IN) ==
[2017-02-18 15:37] LABS: Basophils % 0.1 %; Hematocrit 39.5 % (35.3-44.9); Hemoglobin 13.1 g/dL (11.5-15.4); Immature Granulocytes % 0.6 % (0-4); Lymphocytes # 0.4 K/mcL (0.6-4.6); Lymphocytes % 2.1 %; Mean Corpuscular HGB Conc 33.2 g/dL (31.6-35.5); Mean Corpuscular Hemoglobin 31.3 pg (28.0-33.3); Mean Corpuscular Volume 94.5 fL (83.0-100.0); Mean Platelet Volume 10.2 fL (9.4-12.4); Monocytes # 0.5 K/mcL (0.0-1.3); Monocytes % 2.6 %; Neutrophils # 18.1 K/mcL (1.6-8.9); Nucleated Red Blood Cells 0.1 /100 WBC (0); Platelet Count 185 K/mcL (140-400); Red Blood Count 4.18 M/mcL (3.82-4.97); Segmented Neutrophils % 94.6 %
[2017-02-18 15:56] LABS: Albumin 3.3 g/dL (3.5-5.7); Albumin/Globulin Ratio 1.3 (1.1-2.2); Bilirubin,Direct 0.3 mg/dL (0.0-0.2); Bilirubin,Indirect 0.7 mg/dL (0.0-1.2); Calcium 8.7 mg/dL (8.6-10.3); Globulin 2.5 g/dL (2.4-3.5); Potassium 3.1 mEq/L (3.5-5.1); Total Protein 5.8 g/dL (6.4-8.9)
[2017-02-18] MEDS: 0.9 % Sodium Chloride 1,000 ML IVC SCH ×3 (16:44→23:29)
[2017-02-18 17:14] LABS: Bilirubin,Urine Small (Negative); Blood,Urine Moderate (Negative); Clarity,Urine Turbid (Clear); Color,Urine Dark Yellow (Yellow); Glucose,Urine (UA) Normal (Normal); Ketones,Urine Negative (Negative); Leukocyte Esterase,Urine Large (Negative); Nitrite,Urine Positive (Negative); PH,Urine 5.5 pH Units (5.0-8.0); Protein,Urine 100 mg/dL (Neg-Trace); Specific Gravity,Urine 1.014 (1.010-1.025); Urobilinogen,Urine Normal (Normal)
[2017-02-18 17:17] LABS: Bacteria,Urine Many per hpf (None-Few); Squamous Epithelial Cell,Urine Many per lpf (None-Few); WBC,Urine TNTC per hpf (0-3)
[2017-02-18 17:37] LABS: RBC,Urine 15-30 per hpf (0-3)
[2017-02-18 17:38] LABS: Granular Casts,Urine Many per lpf (None Seen)
[2017-02-18 17:39] LABS: Hyaline Casts,Urine None Seen per lpf (None-Few)
--- NOTE | 2017-02-18 17:51 | Emergency Department Note ---
Disposition Clinical Impression: Diverticulitis, Pneumonia UTI (urinary tract infection) Qualifiers: Urinary tract infection type: acute cystitis Hematuria presence: without hematuria Qualified Code(s): N30.00 - Acute cystitis without hematuria Sepsis Qualifiers: Sepsis type: sepsis due to unspecified organism Qualified Code(s): A41.9 - Disposition: Admitted As Inpatient Condition: Fair General Adult HPI - General Chief complaint: ED Nausea/Vomiting/Diarrhea Stated complaint: N/V/D Time Seen by Provider: 02/18/17 15:45 Source: patient Mode of arrival: ambulatory Limitations: no limitations Nursing Notes Reviewed: Yes Vital Signs Reviewed: Yes - History of Present Illness HPI Narrative: Patient is a 71-year-old female with past medical history of A. fib, hypertension, cancer presents to the emergency department with a history of nausea, vomiting, and diarrhea that has been going on intermittently over the past few days. The patient states that she had one episode of vomiting 2 days ago and then yesterday she had 2 episodes of vomiting. She states that she has had intermittent constipation and diarrhea over the past week. She states that she has had loss of appetite and she is only been able to keep down crackers and peanut butter at home. She denies any sick contacts no cough, no chest pain , no shortness of breath or any other pertinent symptoms. Pain Scale: 0 - Related Data Home Medications Medication Instructions Recorded Confirmed Aspirin [Lo-Dose Aspirin EC] 81 mg PO DAILY 01/10/17 02/18/17 Carvedilol [Coreg] 25 mg PO BID 01/10/17 02/18/17 Cholecalciferol (D-3) [Vitamin D] 1,000 unit PO DAILY 01/10/17 02/18/17 Cyanocobalamin (B-12) [Vitamin B12] 1,000 mg IM QMONTH 01/10/17 02/18/17 Losartan/Hydrochlorothiazide 1 tab PO DAILY 01/10/17 02/18/17 [Losartan-Hctz 50-12.5 mg Tab] Multivit-Min/FA/Lycopen/Lutein [A 1 tab PO DAILY 01/10/17 02/18/17 Thru Z Select Multivit Tab] Pantoprazole Sodium [Protonix] 40 mg PO DAILY 01/10/17 02/18/17 Ustekinumab [STELARA (For 90 mg SQ [id number] 01/10/17 02/18/17 Outpatient Infusion)] Ferrous Sulfate [Iron] 325 mg PO DAILY 02/06/17 02/18/17 Rosuvastatin Calcium [Rosuvastatin 10 mg PO HS 02/06/17 02/18/17 Calcium] Ca Citrate/Mgox/Vit D3/B6/Min 2 each PO DAILY 02/18/17 02/18/17 [Calcium Citrate Plus Tablet] Previous Rx's Medication Instructions Recorded Diltiazem CD (24hr) [Cardizem CD] 120 mg PO DAILY #30 cap.er.24h 01/15/17 Allergies Allergy/AdvReac Type Severity Reaction Status Date / Time [facility] [[facility] AdvReac Cough Verified 02/06/17 07:34 latex AdvReac Rash Verified 02/18/17 18:40 All systems ED: reviewed and negative except as stated. Review of Systems: As Per HPI Constitutional: Reports: fever, chills, other (Loss of appetite) Cardiovascular: Denies: chest pain, palpitations Respiratory: Denies: cough, dyspnea, wheezes Gastrointestinal: Reports: nausea, vomiting, diarrhea, constipation. Denies: abdominal pain, hematemesis, melena, hematochezia Genitourinary: Denies: urgency, dysuria, frequency Musculoskeletal: Denies: back pain, neck pain Integumentary: Denies: rash Neurological: Denies: headache Past Medical History - Past Medical History Attestation: Yes The following information was validated with the patient. Medical history: Reports: cancer, hypertension Surgical history: Reports: hysterectomy Psychiatric history: Reports: no psych history - Social History Smoking Status: Never smoker Smokeless Tobacco Status: No Alcohol use: Reports: none Drug use: Reports: none Physical Exam Patient was ambulating to the room from the restroom upon my arrival. She speaks in full sentences and does not appear to be in acute distress at this time. Patient's vital signs do show that she has hypotensive at 91/54. - General Limitations: no limitations General appearance: alert - Head Head exam: atraumatic, normocephalic, normal inspection - Eye Eye exam: Present: normal appearance, PERRL, EOMI - ENT ENT exam: normal exam, normal oropharynx, mucous membranes dry - Neck Neck exam: Present: normal inspection, full ROM, trachea midline - Chest Chest inspection: Present: normal inspection, symmetric chest wall rise. Absent : tenderness - Respiratory Respiratory exam: Present: normal lung sounds bilaterally. Absent: respiratory distress, wheezes - Cardiovascular Cardiovascular exam: Present: regular rate, normal heart sounds, +S1, +S2 - Abdominal Exam Abdominal exam: Present: soft, Non-Tender, normal bowel sounds. Absent: guarding, rebound - Extremities Exam Extremities exam: Present: normal inspection, full ROM, normal capillary refill. Absent: tenderness, pedal edema - Back Exam Back exam: Present: normal inspection, full ROM. Absent: tenderness, CVA tenderness (R), CVA tenderness (L) - Neurological Exam Neurological exam: Present: alert, oriented X3 - Psychiatric Psychiatric exam: Present: normal affect, normal mood - Skin Skin exam: Present: warm, dry, intact, normal color Course Course Narrative: Review of patient's recent records of her recent diagnostic testing done at [facility] a barium contrast enema showed pulling ears. Flexure and which - Reevaluation(s) Reevaluation #1: The patient's chest x-ray came back showing a focal area that could possibly be a pneumonia could not rule it out. The patient's CT of her abdomen and pelvis came back showing possible sigmoid diverticulitis. The patient's urine came back positive for infection as well. Due to all 3 of these findings the plan is to start the patient on ceftriaxone, Zosyn and vancomycin in the emergency department to cover for urosepsis, diverticulitis, and pneumonia. Time: 18:28 Vital Signs Temperature 99.0 F 02/18/17 13:15 Pulse Rate 77 02/18/17 13:15 Respiratory Rate 18 02/18/17 13:15 Blood Pressure 91/54 02/18/17 13:15 O2 Sat by Pulse Oximetry 94 02/18/17 13:15 Temperature 98.2 F 02/20/17 11:05 Pulse Rate 62 02/20/17 11:05 Respiratory Rate 16 02/20/17 11:05 Blood Pressure 100/62 02/20/17 11:05 O2 Sat by Pulse Oximetry 94 02/20/17 11:05 Oxygen Delivery Oxygen Delivery Room Air Medical Decision Making - Medical Records Medical records reviewed: Yes I reviewed the patient's medical records. - Lab Data Lab results reviewed: Yes I reviewed the patient's lab results. Result diagrams: 02/20/17 03:26 02/20/17 03:26 Lab Results 02/18/17 02/18/17 02/18/17 Range/Units 15:32 15:32 16:46 WBC 19.2 H (4.3-11.1) K/mcL RBC 4.18 (3.82-4.97) M/mcL Hgb 13.1 (11.5-15.4) g/dL Hct 39.5 (35.3-44.9) % MCV 94.5 (83.0-100.0) fL MCH 31.3 (28.0-33.3) pg MCHC 33.2 (31.6-35.5) g/dL RDW 15.0 H (11.5-14.5) % Plt Count 185 (140-400) K/mcL MPV 10.2 (9.4-12.4) fL Immature Gran % 0.6 (0-4) % Seg Neutrophils % 94.6 % Lymphocytes % 2.1 % Monocytes % 2.6 % Eosinophils % 0.0 % Basophils % 0.1 % Neutrophils # 18.1 H (1.6-8.9) K/mcL Lymphocytes # 0.4 L (0.6-4.6) K/mcL Monocytes # 0.5 (0.0-1.3) K/mcL Eosinophils # 0.0 (0.0-0.6) K/mcL Basophils # 0.0 (0.0-0.2) K/mcL Nucleated RBCs/100 WBC 0.1 H (0) /100 WBC Sodium 134 L (136-145) mEq/L Potassium 3.1 L (3.5-5.1) mEq/L Chloride 100 (98-107) mEq/L Carbon Dioxide 24 (23-29) mEq/L BUN 36 H (8-23) mg/dL Creatinine 2.18 H (0.60-1.20) mg/dL Est GFR ( Amer) 27 L (> 60) Est GFR (Non-Af Amer) 22 L (> 60) BUN/Creatinine Ratio 17 (6-26) Glucose 266 H (70-105) mg/dL Calculated Osmolality 296 (280-300) Lactic Acid 1.8 (0.5-2.2) mmol/L Calcium 8.7 (8.6-10.3) mg/dL Magnesium (1.6-2.6) mg/dL Total Bilirubin 1.0 (0.3-1.0) mg/dL Direct Bilirubin 0.3 H (0.0-0.2) mg/dL Indirect Bilirubin 0.7 (0.0-1.2) mg/dL AST 29 (13-39) Units/L ALT 30 (7-52) Units/L Alkaline Phosphatase 98 (34-104) Units/L Troponin I (< 0.04) ng/mL Serum Total Protein 5.8 L (6.4-8.9) g/dL Albumin 3.3 L (3.5-5.7) g/dL Globulin 2.5 (2.4-3.5) g/dL Albumin/Globulin Ratio 1.3 (1.1-2.2) Lipase 24 (11-82) Units/L Ur Specimen Adequacy Urine Color (Yellow) Urine Clarity (Clear) Urine pH (5.0-8.0) pH Units Ur Specific [place] (1.010-1.025) Urine Protein (Neg-Trace) mg/dL Urine Glucose (UA) (Normal) mg/dL Urine Ketones (Negative) mg/dL Urine Blood (Negative) Urine Nitrite (Negative) Urine Bilirubin (Negative) Urine Urobilinogen (Normal) mg/dL Ur Leukocyte Esterase (Negative) Urine Microscopic RBC (0-3) per hpf Urine Microscopic WBC (0-3) per hpf Ur Squamous Epith Cells (None-Few) per lpf Urine Bacteria (None-Few) per hpf Hyaline Casts (None-Few) per lpf Granular Casts (None Seen) per lpf Urine Yeast Ur Culture Indicated? (NO) A. baumannii (PCR) (Not Detect) Esther albicans (PCR) (Not Detect) C. glabrata (PCR) (Not Detect) C. krusei (PCR) (Not Detect) C. parapsilosis (PCR) (Not Detect) C. tropicalis (PCR) (Not Detect) Enterobacteriac sp PCR (Not Detect) E. cloacae complex PCR (Not Detect) Enterococcus sp PCR (Not Detect) E. coli (PCR) (Not Detect) H. influenzae (PCR) (Not Detect) Klebsiella oxytoca PCR (Not Detect) Klebsiella pneumoniae (Not Detect) List. monocytogenes PCR (Not Detect) N. meningitidis (PCR) (Not Detect) Proteus species (PCR) (Not Detect) Serratia marcescens PCR (Not Detect) Staphylococcus sp PCR (Not Detect) Staph aureus (PCR) (Not Detect) mecA-Methicil Res Gene (Not Detect) Streptococcus sp PCR (Not Detect) Group A Strep DNA (Not Detect) Group B Strep (PCR) (Not Detect) Strep pneumoniae (PCR) (Not Detect) P. aeruginosa (PCR) (Not Detect) Brie/B-Vanco Res Genes (Not Detect) KPC (blaKPC) Detect PCR (Not Detect) 02/18/17 02/18/17 02/18/17 Range/Units 16:46 16:46 16:46 WBC (4.3-11.1) K/mcL RBC (3.82-4.97) M/mcL Hgb (11.5-15.4) g/dL Hct (35.3-44.9) % MCV (83.0-100.0) fL MCH (28.0-33.3) pg MCHC (31.6-35.5) g/dL RDW (11.5-14.5) % Plt Count (140-400) K/mcL MPV (9.4-12.4) fL Immature Gran % (0-4) % Seg Neutrophils % % Lymphocytes % % Monocytes % % Eosinophils % % Basophils % % Neutrophils # (1.6-8.9) K/mcL Lymphocytes # (0.6-4.6) K/mcL Monocytes # (0.0-1.3) K/mcL Eosinophils # (0.0-0.6) K/mcL Basophils # (0.0-0.2) K/mcL Nucleated RBCs/100 WBC (0) /100 WBC Sodium (136-145) mEq/L Potassium (3.5-5.1) mEq/L Chloride (98-107) mEq/L Carbon Dioxide (23-29) mEq/L BUN (8-23) mg/dL Creatinine (0.60-1.20) mg/dL Est GFR ( Amer) (> 60) Est GFR (Non-Af Amer) (> 60) BUN/Creatinine Ratio (6-26) Glucose (70-105) mg/dL Calculated Osmolality (280-300) Lactic Acid (0.5-2.2) mmol/L Calcium (8.6-10.3) mg/dL Magnesium 2.1 (1.6-2.6) mg/dL Total Bilirubin (0.3-1.0) mg/dL Direct Bilirubin (0.0-0.2) mg/dL Indirect Bilirubin (0.0-1.2) mg/dL AST (13-39) Units/L ALT (7-52) Units/L Alkaline Phosphatase (34-104) Units/L Troponin I < 0.03 (< 0.04) ng/mL Serum Total Protein (6.4-8.9) g/dL Albumin (3.5-5.7) g/dL Globulin (2.4-3.5) g/dL Albumin/Globulin Ratio (1.1-2.2) Lipase (11-82) Units/L Ur Specimen Adequacy Urine Color (Yellow) Urine Clarity (Clear) Urine pH (5.0-8.0) pH Units Ur Specific [place] (1.010-1.025) Urine Protein (Neg-Trace) mg/dL Urine Glucose (UA) (Normal) mg/dL Urine Ketones (Negative) mg/dL Urine Blood (Negative) Urine Nitrite (Negative) Urine Bilirubin (Negative) Urine Urobilinogen (Normal) mg/dL Ur Leukocyte Esterase (Negative) Urine Microscopic RBC (0-3) per hpf Urine Microscopic WBC (0-3) per hpf Ur Squamous Epith Cells (None-Few) per lpf Urine Bacteria (None-Few) per hpf Hyaline Casts (None-Few) per lpf Granular Casts (None Seen) per lpf Urine Yeast Ur Culture Indicated? (NO) A. baumannii (PCR) Not Detected (Not Detect) Esther albicans (PCR) Not Detected (Not Detect) C. glabrata (PCR) Not Detected (Not Detect) C. krusei (PCR) Not Detected (Not Detect) C. parapsilosis (PCR) Not Detected (Not Detect) C. tropicalis (PCR) Not Detected (Not Detect) Enterobacteriac sp PCR DETECTED A (Not Detect) E. cloacae complex PCR Not Detected (Not Detect) Enterococcus sp PCR Not Detected (Not Detect) E. coli (PCR) DETECTED A (Not Detect) H. influenzae (PCR) Not Detected (Not Detect) Klebsiella oxytoca PCR Not Detected (Not Detect) Klebsiella pneumoniae Not Detected (Not Detect) List. monocytogenes PCR Not Detected (Not Detect) N. meningitidis (PCR) Not Detected (Not Detect) Proteus species (PCR) Not Detected (Not Detect) Serratia marcescens PCR Not Detected (Not Detect) Staphylococcus sp PCR Not Detected (Not Detect) Staph aureus (PCR) Not Detected (Not Detect) mecA-Methicil Res Gene Not Detected (Not Detect) Streptococcus sp PCR Not Detected (Not Detect) Group A Strep DNA Not Detected (Not Detect) Group B Strep (PCR) Not Detected (Not Detect) Strep pneumoniae (PCR) Not Detected (Not Detect) P. aeruginosa (PCR) Not Detected (Not Detect) Brie/B-Vanco Res Genes Not Detected (Not Detect) KPC (blaKPC) Detect PCR Not Detected (Not Detect) 02/18/17 Range/Units 16:53 WBC (4.3-11.1) K/mcL RBC (3.82-4.97) M/mcL Hgb (11.5-15.4) g/dL Hct (35.3-44.9) % MCV (83.0-100.0) fL MCH (28.0-33.3) pg MCHC (31.6-35.5) g/dL RDW (11.5-14.5) % Plt Count (140-400) K/mcL MPV (9.4-12.4) fL Immature Gran % (0-4) % Seg Neutrophils % % Lymphocytes % % Monocytes % % Eosinophils % % Basophils % % Neutrophils # (1.6-8.9) K/mcL Lymphocytes # (0.6-4.6) K/mcL Monocytes # (0.0-1.3) K/mcL Eosinophils # (0.0-0.6) K/mcL Basophils # (0.0-0.2) K/mcL Nucleated RBCs/100 WBC (0) /100 WBC Sodium (136-145) mEq/L Potassium (3.5-5.1) mEq/L Chloride (98-107) mEq/L Carbon Dioxide (23-29) mEq/L BUN (8-23) mg/dL Creatinine (0.60-1.20) mg/dL Est GFR ( Amer) (> 60) Est GFR (Non-Af Amer) (> 60) BUN/Creatinine Ratio (6-26) Glucose (70-105) mg/dL Calculated Osmolality (280-300) Lactic Acid (0.5-2.2) mmol/L Calcium (8.6-10.3) mg/dL Magnesium (1.6-2.6) mg/dL Total Bilirubin (0.3-1.0) mg/dL Direct Bilirubin (0.0-0.2) mg/dL Indirect Bilirubin (0.0-1.2) mg/dL AST (13-39) Units/L ALT (7-52) Units/L Alkaline Phosphatase (34-104) Units/L Troponin I (< 0.04) ng/mL Serum Total Protein (6.4-8.9) g/dL Albumin (3.5-5.7) g/dL Globulin (2.4-3.5) g/dL Albumin/Globulin Ratio (1.1-2.2) Lipase (11-82) Units/L Ur Specimen Adequacy See below A Urine Color Dark Yellow (Yellow) Urine Clarity Turbid A (Clear) Urine pH 5.5 (5.0-8.0) pH Units Ur Specific [place] 1.014 (1.010-1.025) Urine Protein 100 H (Neg-Trace) mg/dL Urine Glucose (UA) Normal (Normal) mg/dL Urine Ketones Negative (Negative) mg/dL Urine Blood Moderate H (Negative) Urine Nitrite Positive A (Negative) Urine Bilirubin Small H (Negative) Urine Urobilinogen Normal (Normal) mg/dL Ur Leukocyte Esterase Large H (Negative) Urine Microscopic RBC 15-30 H (0-3) per hpf Urine Microscopic WBC TNTC H (0-3) per hpf Ur Squamous Epith Cells Many H (None-Few) per lpf Urine Bacteria Many H (None-Few) per hpf Hyaline Casts None Seen (None-Few) per lpf Granular Casts Many H (None Seen) per lpf Urine Yeast Test Not Performed Ur Culture Indicated? NO. (NO) A. baumannii (PCR) (Not Detect) Esther albicans (PCR) (Not Detect) C. glabrata (PCR) (Not Detect) C. krusei (PCR) (Not Detect) C. parapsilosis (PCR) (Not Detect) C. tropicalis (PCR) (Not Detect) Enterobacteriac sp PCR (Not Detect) E. cloacae complex PCR (Not Detect) Enterococcus sp PCR (Not Detect) E. coli (PCR) (Not Detect) H. influenzae (PCR) (Not Detect) Klebsiella oxytoca PCR (Not Detect) Klebsiella pneumoniae (Not Detect) List. monocytogenes PCR (Not Detect) N. meningitidis (PCR) (Not Detect) Proteus species (PCR) (Not Detect) Serratia marcescens PCR (Not Detect) Staphylococcus sp PCR (Not Detect) Staph aureus (PCR) (Not Detect) mecA-Methicil Res Gene (Not Detect) Streptococcus sp PCR (Not Detect) Group A Strep DNA (Not Detect) Group B Strep (PCR) (Not Detect) Strep pneumoniae (PCR) (Not Detect) P. aeruginosa (PCR) (Not Detect) Brie/B-Vanco Res Genes (Not Detect) KPC (blaKPC) Detect PCR (Not Detect) - Radiology Data Radiology results reviewed: Yes I reviewed the patient's radiology results. Chest X-Ray 02/18/17 16:51 IMPRESSION: Increased density in the medial left retrocardiac region. This is indeterminate may represent a small segment of atelectasis. A small focus of developing pneumonia not excluded No acute abnormality otherwise D/ / Demetrius Bo / Demetrius Bo Interpreting Provider: Demetrius Bo Abdomen/Pelvis CT 02/18/17 16:52 IMPRESSION: 1. Diverticulosis with question of mild acute sigmoid diverticulitis and focal sigmoid wall thickening. Small amount of adjacent fluid in the left hemipelvis. No defined abscess. Follow-up colonoscopy is suggested. 2. No evidence of obstructive uropathy. 3. The appendix is not identified. No pericecal inflammatory change. D/ / 02/18/2017 18:11:59 Ramiro Calloway MD / opal Interpreting Provider: Ramiro Calloway MD Attestation Statement - Attestation Attestation: 30 minutes of critical care exclusive of separately billable procedures
[2017-02-18] MEDS ORDERED: cefTRIAXone 1,000 MG in Water for inj. (sterile) 10 ML IVP ONE (18:11)
[2017-02-18] MEDS ORDERED: 0.9 % Sodium Chloride 1,000 ML IVC ONE (18:11)
--- NOTE | 2017-02-18 18:11 | Emergency Department Note ---
START Narrative - START START: I examined this patient and my medical decision-making was reviewed with the Resident Physician. I agree with the documented findings, disposition and treatment plan as described except to the extent set forth below. Patient eating fairly well. Patient had an admission to the hospital in December. States she has not felt well since. Starting Friday she started feeling worse. Fevers. Some vomiting. One episode of diarrhea. Denies abdominal pain. On examination she is in no acute distress. Her abdomen is soft nontender. Plan. Septic workup. Patient meet severe sepsis criteria with creatinine greater than 2. Patient with diverticulitis, pneumonia, UTI, severe sepsis. Notified by nursing staff a blood pressure of 86 systolic. Ordered third liter of fluid. Patient with septic shock. Pt responsive to fluid bolus with SBP now greater than 90. 40 minutes of critical care exclusive of separately billable procedures.
[2017-02-18] MEDS ORDERED: Piperacillin/Tazobactam 4.5 GM in Water for inj. (sterile) 20 ML 20 ML IVP ONE (18:23)
[2017-02-18] MEDS ORDERED: Vancomycin 1,250 MG in D5% in Water 250 ML IVPB ONE (18:38)
[2017-02-18] MEDS ORDERED: Piperacillin/Tazobactam 3.375 GM in Water for inj. (sterile) 20 ML 20 ML IVP ONE (18:59)
[2017-02-18] MEDS ORDERED: Naloxone 0.4 MG/ML INJ IVP PRN (22:59)
[2017-02-18] MEDS ORDERED: Cyanocobalamin (B-12) 1,000 MCG/ML VIAL IM SCH (23:15)
[2017-02-19] MEDS ORDERED: MetroNIDAZOLE 500 MG/100 ML 500 MG/100 ML BAG IVPB SCH
[2017-02-19] MEDS: Acetaminophen 325 MG TABLET PO PRN ×3 (00:21→19:36)
[2017-02-19] MEDS: *HR* Heparin 5,000 UNIT/ML VIAL SQ SCH ×2 (05:20→16:58)
--- NOTE | 2017-02-19 05:49 | Internal Med History&Physical ---
Date of Encounter: 02/18/17 Time of Encounter: 21:00 Assessment and Plan (1) UTI (urinary tract infection) Current visit: Yes Status: Acute Patient has a UTI with urinating symptoms. Patient was placed on Vanco and Zosyn now for multiple source of infection. Follow-up urine culture. Qualifiers: Urinary tract infection type: acute cystitis Hematuria presence: without hematuria Qualified Code(s): N30.00 - Acute cystitis without hematuria (2) Diverticulitis Current visit: Yes Status: Acute CT abdomen shows diverticulitis. Place patient on clear liquid diet, IV fluid, patient is on Zosyn now. (3) Pneumonia Current visit: Yes Status: Acute Chest x-ray shows early stage of pneumonia. Patient has no cough but feels chill. She has leukocytosis. Patient is on immunotherapy for melanoma now. We will treat patient as HCAP with Vanco and Zosyn. Follow up blood culture Qualifiers: Pneumonia type: due to Pneumococcus Laterality: bilateral Lung location: lower lobe of lung Qualified Code(s): J13 - Pneumonia due to Streptococcus pneumoniae (4) DVT prophylaxis Current visit: No Status: Acute Heparin subcutaneously (5) Hypokalemia Current visit: No Status: Acute We will give potassium supplement (6) A-fib Current visit: Yes Status: Acute History of A. fib. Normal sinus rhythm now. On Aspirin. No anticoagulation because of her recent GI bleed Qualifiers: Atrial fibrillation type: paroxysmal Qualified Code(s): I48.0 - Paroxysmal atrial fibrillation (7) Melanoma Current visit: Yes Status: Acute Patient has melanoma, following with oncologist in [facility]. Last visit was 2 weeks ago. Qualifiers: Melanoma location: unspecified site Qualified Code(s): C43.9 - Malignant melanoma of skin, unspecified Internal Medicine - H&P: HPI Chief complaint: Nausea vomiting, chills Admitted From: Home Plans for Post Hospital Care: Home History of present illness: Ms. Tatum is a 71 year old female with history of melanoma causing the right eye blindness, Wood esophagus, hypertension, A. fib, present to ER for feeling cold and chill for about one month, nausea, and vomiting. The vomiting is stomach content, no blood. Patient denies abdominal pain. She denies diarrhea to me but complaining of abdominal cramping on bowel movement. Patient has relatively low BP ER, which improved after hydration. Patient has no cough, shortness of breath, chest pain, or runny nose. Patient does have some urinating urgency and burning for about 2 weeks. Patient was admitted for further management. Past Med Surg Social Fam HX - Past Medical History Medical history: cancer, hypertension Psychiatric history: no psych history - Past Surgical History Surgical History: cholecystectomy, hysterectomy - Social History Smoking Status: Never smoker Smokeless Tobacco Status: No Alcohol use: none Drug use: none - Family History Mother Family Member Ethnicity: Non- Living Status: Age at : 83 Hx Family Cardiac Disorders: Yes Father Family Member Ethnicity: Non- Living Status: Age at : 72 Hx Family Cardiac Disorders: Yes Internal Medicine - H&P: Meds Aspirin [Lo-Dose Aspirin EC] 81 mg PO DAILY 01/10/17 [History] Carvedilol [Coreg] 25 mg PO BID 01/10/17 [History] Cholecalciferol (D-3) [Vitamin D] 1,000 unit PO DAILY 01/10/17 [History] Cyanocobalamin (B-12) [Vitamin B12] 1,000 mg IM QMONTH 01/10/17 [History] Losartan/Hydrochlorothiazide [Losartan-Hctz 50-12.5 mg Tab] 1 tab PO DAILY 01/10 [History] Multivit-Min/FA/Lycopen/Lutein [A Thru Z Select Multivit Tab] 1 tab PO DAILY [History] Pantoprazole Sodium [Protonix] 40 mg PO DAILY 01/10/17 [History] Ustekinumab [STELARA (For Outpatient Infusion)] 90 mg SQ [id number] 01/10/17 [ History] Diltiazem CD (24hr) [Cardizem CD] 120 mg PO DAILY #30 cap.er.24h 01/15/17 [Rx] Ferrous Sulfate [Iron] 325 mg PO DAILY 02/06/17 [History] Rosuvastatin Calcium [Rosuvastatin Calcium] 10 mg PO HS 02/06/17 [History] Ca Citrate/Mgox/Vit D3/B6/Min [Calcium Citrate Plus Tablet] 2 each PO DAILY 04/06 [History] 3 Allergy/AdvReac Type Severity Reaction Status Date / Time amlodip[place] [[place] [facility] AdvReac Cough Verified 02/06/17 07:34 latex AdvReac Rash Verified 02/18/17 18:40 All Systems PM: A 10-system review of systems was performed and is negative for pertinent findings except as documented above in the HPI. - Constitutional Vitals: Temp Pulse Resp BP Pulse Ox 98.7 F 78 16 109/55 95 02/19/17 00:30 02/19/17 00:30 02/19/17 00:30 02/19/17 00:30 02/19/17 00:30 General appearance: Present: A&O X 3, no acute distress, answers questions appropriately - Head Head exam: Present: atraumatic, normocephalic - Eye Eye exam: Present: PERRL, conjuntiva pink, sclera anicteric Pupils: Present: PERRL - Neck Neck exam general surgery: Present: supple, trachea midline. Absent: lymphadenopathy - Respiratory Respiratory exam: Present: CTAB. Absent: accessory muscle use, rales, rhonchi, wheezes - Cardiovascular Cardiovascular exam: Present: RRR, +S1, +S2. Absent: diastolic murmur, gallop, rubs, systolic murmur - GI/Abdominal GI/Abdominal exam: Present: normal bowel sounds, soft, no peritoneal signs. Absent: distended, tenderness - Extremities Exam Extremities exam: Present: warm, radial pulses palpable and symmetrical. Absent : calf tenderness, cyanotic, pedal edema - Neurological Exam Neurological exam: Present: CN II-XII intact, oriented X3, no focal deficits. Absent: pronater drift, facial droop, speech deficit - Skin Skin exam: Present: dry, intact Internal Med - H&P Results - Labs CBC & Chem 7: 02/18/17 15:32 02/18/17 15:32
[2017-02-19] MEDS ORDERED: Vancomycin 1,250 MG in D5% in Water 250 ML IVPB SCH (06:00)
[2017-02-19] MEDS ORDERED: Piperacillin/Tazobactam 3.375 GM in D5% in Water (Mini-Bag+) 100 ML IVPB SCH (06:00)
[2017-02-19] MEDS ORDERED: Piperacillin/Tazobactam 3.375 GM/200 ML BAG IVPB SCH ×2 (06:00→16:00)
[2017-02-19 06:27] LABS: Basophils % 0.2 %; Hematocrit 36.7 % (35.3-44.9); Hemoglobin 12.4 g/dL (11.5-15.4); Immature Granulocytes % 1.3 % (0-4); Lymphocytes # 0.9 K/mcL (0.6-4.6); Lymphocytes % 4.1 %; Mean Corpuscular HGB Conc 33.8 g/dL (31.6-35.5); Mean Corpuscular Hemoglobin 32.2 pg (28.0-33.3); Mean Corpuscular Volume 95.3 fL (83.0-100.0); Mean Platelet Volume 10.7 fL (9.4-12.4); Monocytes # 1.7 K/mcL (0.0-1.3); Monocytes % 7.4 %; Neutrophils # 19.4 K/mcL (1.6-8.9); Platelet Count 160 K/mcL (140-400); Red Blood Count 3.85 M/mcL (3.82-4.97); Red Cell Distribution Width 15.5 % (11.5-14.5)
[2017-02-19 06:36] LABS: Calcium 8.2 mg/dL (8.6-10.3); Potassium 3.5 mEq/L (3.5-5.1)
[2017-02-19] MEDS: Diltiazem CD (24hr) 120 MG CAPSULE PO SCH (07:41)
[2017-02-19] MEDS: Aspirin Enteric Coated 81 MG Tablet PO SCH (07:41)
[2017-02-19] MEDS: Cholecalciferol (D-3) 1,000 UNIT TABLET PO SCH (07:49)
[2017-02-19] MEDS ORDERED: CALCIUM CITRATE PLUS PO SCH (09:00)
--- NOTE | 2017-02-19 09:20 | Internal Med Progress Note ---
<Jose Lu - Last Filed: 02/19/17 15:13> Date of Encounter: 02/19/17 Time of Encounter: 09:18 - Assessment and plan (1) Sepsis Current Visit: Yes Status: Acute Assessment and plan: Secondary to diverticulitis as seen on CAT scan and also possible UTI Patient was started on vancomycin and Zosyn, but this has been switched to Cipro and Flagyl as white count slightly increased Awaiting blood and urine cultures prior to de-escalation Her blood pressures are low-normal despite fluid hydration Qualifiers: Qualified Code(s): A41.9 - Sepsis, unspecified organism (2) Diverticulitis Current Visit: Yes Status: Acute Assessment and plan: CT demonstrates sigmoid diverticulitis Continuing on Cipro and Flagyl as above Starting her on clear liquids and will increase as tolerated (3) Pneumonia Current Visit: Yes Status: Suspected Assessment and plan: X-ray did demonstrate a increased density in left retrocardiac region that could not rule out pneumonia Currently on Flagyl and Cipro for diverticulitis which should cover most pulmonary organisms Influenza swab negative, await blood cultures Qualifiers: Pneumonia type: due to Pneumococcus Laterality: bilateral Lung location: lower lobe of lung Qualified Code(s): J13 - Pneumonia due to Streptococcus pneumoniae (4) UTI (urinary tract infection) Current Visit: Yes Status: Acute Assessment and plan: Initial UA did show both nitrite and leukocyte esterase however culture was not indicated Specific urine culture order was obtained and results are pending Continue on Cipro and Flagyl for diverticulitis Qualifiers: Urinary tract infection type: acute cystitis Hematuria presence: without hematuria Qualified Code(s): N30.00 - Acute cystitis without hematuria (5) A-fib Current Visit: Yes Status: Chronic Assessment and plan: Patient currently in normal sinus rhythm We will continue home Cardizem and Coreg while monitoring blood pressure She is not on chronic anticoagulation due to history of GI bleed Qualifiers: Atrial fibrillation type: paroxysmal Qualified Code(s): I48.0 - Paroxysmal atrial fibrillation (6) Melanoma Current Visit: Yes Status: Acute Assessment and plan: Patient does follow-up with oncology at [facility] Qualifiers: Laterality: unspecified laterality Qualified Code(s): 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 She states she had a small bowel movement earlier with some bright red blood. Had an episode of nausea and vomiting prior to admission but none since. States her urine output has decreased whereas she goes frequently at home. No issues with chest pain or shortness of breath. - Constitutional Vitals: Temp Pulse Resp BP Pulse Ox 98.2 F 68 16 108/67 96 02/19/17 07:10 02/19/17 07:10 02/19/17 07:10 02/19/17 07:10 02/19/17 07:10 General appearance: Present: cooperative, A&O X 3, no acute distress, answers questions appropriately - Head Head exam: Present: atraumatic, normocephalic - Eye Eye exam: Present: PERRL, conjuntiva pink, sclera anicteric - Neck Neck exam general surgery: Present: supple, trachea midline. Absent: lymphadenopathy - Respiratory Respiratory exam: Present: CTAB. Absent: accessory muscle use, rales, rhonchi, wheezes - Cardiovascular Cardiovascular exam: Present: RRR, +S1, +S2, systolic murmur. Absent: diastolic murmur, gallop, rubs - GI/Abdominal GI/Abdominal exam: Present: normal bowel sounds, soft, no peritoneal signs. Absent: distended, tenderness - Extremities Exam Extremities exam: Present: warm, radial pulses palpable and symmetrical. Absent : calf tenderness, cyanotic, pedal edema - Neurological Exam Neurological exam: Present: alert, no focal deficits. Absent: facial droop, speech deficit - Skin Skin exam: Present: dry, intact Internal Medicine: Result - Labs CBC & Chem 7: 02/19/17 06:02 02/19/17 06:02 Labs: Short CBC 02/19/17 Range/Units 06:02 WBC 22.3 H (4.3-11.1) K/mcL Hgb 12.4 (11.5-15.4) g/dL Hct 36.7 (35.3-44.9) % Plt Count 160 (140-400) K/mcL Neutrophils # 19.4 H (1.6-8.9) K/mcL BMP 02/19/17 06:02 Sodium 139 Potassium 3.5 Chloride 107 Carbon Dioxide 26 BUN 35 H Creatinine 2.10 H Glucose 122 H Calcium 8.2 L Consult Discharge Plan - Plan Referrals: Cornelia Stephen, [employer] [Primary Care Provider] - (Please call appt. friday..) <Duane Tatum A - Last Filed: 02/19/17 17:55> Date of Encounter: 02/19/17 - Assessment and plan (1) Sepsis Current Visit: Yes Status: Acute Qualifiers: Sepsis type: sepsis due to unspecified organism Qualified Code(s): A41.9 - Sepsis, unspecified organism (2) Nausea Current Visit: Yes Status: Acute (3) Sigmoid diverticulitis Current Visit: Yes Status: Acute Assessment and plan: On IV abx (4) Pneumonia Current Visit: Yes Status: Suspected Qualifiers: Pneumonia type: due to Pneumococcus Laterality: bilateral Lung location: lower lobe of lung Qualified Code(s): J13 - Pneumonia due to Streptococcus pneumoniae (5) UTI (urinary tract infection) Current Visit: Yes Status: Acute Qualifiers: Urinary tract infection type: acute cystitis Hematuria presence: without hematuria Qualified Code(s): N30.00 - Acute cystitis without hematuria (6) A-fib Current Visit: Yes Status: Chronic Qualifiers: Atrial fibrillation type: paroxysmal Qualified Code(s): I48.0 - Paroxysmal atrial fibrillation (7) Melanoma Current Visit: Yes Status: Acute Qualifiers: Laterality: unspecified laterality Qualified Code(s): 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, including canthus - Constitutional Vitals: Temp Pulse Resp BP Pulse Ox 98.1 F 67 15 100/57 93 02/19/17 15:54 02/19/17 15:54 02/19/17 15:54 02/19/17 15:54 02/19/17 15:54 Internal Medicine: Result - Labs CBC & Chem 7: 02/19/17 06:02 02/19/17 06:02 Labs: Short CBC 02/19/17 Range/Units 06:02 WBC 22.3 H (4.3-11.1) K/mcL Hgb 12.4 (11.5-15.4) g/dL Hct 36.7 (35.3-44.9) % Plt Count 160 (140-400) K/mcL Neutrophils # 19.4 H (1.6-8.9) K/mcL BMP 02/19/17 06:02 Sodium 139 Potassium 3.5 Chloride 107 Carbon Dioxide 26 BUN 35 H Creatinine 2.10 H Glucose 122 H Calcium 8.2 L - Attending Attestation I examined this patient and my medical decision-making was reviewed with the Resident Physician on 02/19/17. I agree with the documented findings, disposition and treatment plan as described except to the extent set forth below. Ms Tatum is currently admitted for sepsis related to acute diverticulitis and pneumonia as well as UTI. She remains moderate to high risk due to potential for worsening clinical status. Ms Tatum continues to have significant nausea unrelieved by Zofran. Phenergan added. No fever or chills. No further diarrhea. No worsening of abd pain. Exam Alert. Comfortable at this time Mucus membranes dry Heart reg No wheeze Abd soft - nontender at this time. I/P 1. Nausea - PRN meds. ? related to Flagyl 2. Diverticulitis 3. PNA 4 UTI Further diagnoses and plan as above.
[2017-02-19] MEDS: 0.9 % Sodium Chloride 1,000 ML IVC SCH (11:42)
[2017-02-19] MEDS ORDERED: Vancomycin 1,000 MG in D5% in Water 250 ML IVPB ONE (12:20)
[2017-02-19] MEDS ORDERED: Ondansetron 4 MG/2 ML VIAL IVP PRN (14:42)
[2017-02-19] MEDS: MetroNIDAZOLE 500 MG/100 ML 500 MG/100 ML BAG IVPB SCH ×2 (15:48→23:32)
--- NOTE | 2017-02-19 16:29 | Electrocardiograph Report ---
[address] [place] [address] Test Date: 2017-02-18 Pat Name: Juliet Tatum Department: 112 Room: [facility] Gender: F Integrative Medicine Physician: GISELLE : 1945 Requested By: Duane Tatum Order Number: [id number] Reading MD: Violetta Weston Measurements Intervals [place] Rate: 76 P: 53 [place]: 173 QRS: 46 QRSD: 102 T: 51 QT: 302 QTc: 332 Interpretive Statements SINUS RHYTHM NONSPECIFIC ST ABNORMALITIES Electronically Signed On 02-19-2017 16:27:38 EST by Violetta Weston
--- NOTE | 2017-02-19 16:34 | Electrocardiograph Report ---
[place] [id number] Test Date: 2017-02-18 Pat Name: Juliet Tatum Department: 104 Room: [facility] Gender: F Driver Operator: DAVON : 1945 Requested By: Analy See Order Number: [id number] Reading MD: Violetta Weston Measurements Intervals [place] Rate: 74 P: 49 [place]: 180 QRS: 13 QRSD: 100 T: 50 QT: 350 QTc: 378 Interpretive Statements SINUS RHYTHM NONSPECIFIC T-WAVE ABNORMALITY Electronically Signed On 02-19-2017 16:32:44 EST by Violetta Weston
[2017-02-19] MEDS ORDERED: Promethazine 12.5 MG in 0.9 % Sodium Chloride 50 ML IVPB PRN (16:56)
[2017-02-19 21:14] LABS: Acinetobacter baumannii by PCR Not Detected (Not Detect); Candida albicans by PCR Not Detected (Not Detect); Candida glabrata by PCR Not Detected (Not Detect); Candida krusei by PCR Not Detected (Not Detect); Candida parapsilosis by PCR Not Detected (Not Detect); Candida tropicalis by PCR Not Detected (Not Detect); Enterococcus by PCR Not Detected (Not Detect); Escherichia coli by PCR ***DETECTED*** (Not Detect); Klebsiella oxytoca by PCR Not Detected (Not Detect); Klebsiella pneumoniae by PCR Not Detected (Not Detect); Pseudomonas aeruginosa by PCR Not Detected (Not Detect); Serratia marcescens by PCR Not Detected (Not Detect); Staphylococcus aureus by PCR Not Detected (Not Detect); Streptococcus agalactiae(B)PCR Not Detected (Not Detect); Streptococcus by PCR Not Detected (Not Detect); Streptococcus pneumoniae PCR Not Detected (Not Detect); Streptococcus pyogenes (A) PCR Not Detected (Not Detect); blaKPC Carbapenem-Resist Gene Not Detected (Not Detect); mecA Methicillin-Resist Gene Not Detected (Not Detect); vanA/B Vancomycin-Resist Genes Not Detected (Not Detect)
[2017-02-20 03:44] LABS: Basophils % 0.2 %; Eosinophils % 0.8 %; Hematocrit 36.1 % (35.3-44.9); Hemoglobin 11.5 g/dL (11.5-15.4); Immature Granulocytes % 0.6 % (0-4); Immature Platelets 2.7 % (1.1-6.1); Lymphocytes % 4.6 %; Mean Corpuscular HGB Conc 31.9 g/dL (31.6-35.5); Mean Corpuscular Hemoglobin 30.9 pg (28.0-33.3); Mean Platelet Volume 10.7 fL (9.4-12.4); Monocytes % 9.2 %; Platelet Count 158 K/mcL (140-400); Red Blood Count 3.72 M/mcL (3.82-4.97); Red Cell Distribution Width 15.7 % (11.5-14.5); Segmented Neutrophils % 84.6 %
[2017-02-20 03:45] LABS: Eosinophils # 0.1 K/mcL (0.0-0.6); Lymphocytes # 0.6 K/mcL (0.6-4.6); Monocytes # 1.2 K/mcL (0.0-1.3); Neutrophils # 10.7 K/mcL (1.6-8.9)
[2017-02-20 03:58] LABS: Calcium 8.4 mg/dL (8.6-10.3); Potassium 3.5 mEq/L (3.5-5.1)
[2017-02-20] MEDS: Acetaminophen 325 MG TABLET PO PRN ×2 (04:13→16:47)
[2017-02-20] MEDS ORDERED: Aminoglycoside Consult 1 EACH MC ONE (08:30)
[2017-02-20] MEDS: Cholecalciferol (D-3) 1,000 UNIT TABLET PO SCH (09:17)
[2017-02-20] MEDS: 0.9 % Sodium Chloride 1,000 ML IVC SCH ×2 (09:18→16:39)
[2017-02-20] MEDS: Diltiazem CD (24hr) 120 MG CAPSULE PO SCH (09:18)
[2017-02-20] MEDS: Aspirin Enteric Coated 81 MG Tablet PO SCH (09:18)
[2017-02-20] MEDS: *HR* Heparin 5,000 UNIT/ML VIAL SQ SCH ×3 (09:18→18:31)
--- NOTE | 2017-02-20 09:25 | Internal Med Progress Note ---
<Jose Lu - Last Filed: 02/20/17 13:28> Date of Encounter: 02/20/17 Time of Encounter: 09:24 - Assessment and plan (1) Sepsis Current Visit: Yes Status: Acute Assessment and plan: Secondary to diverticulitis as seen on CAT scan and also possible UTI She did spike a temperature of 101.6 overnight so another blood culture has been ordered Patient was started on vancomycin and Zosyn, but this has been switched to Cipro and Flagyl Blood cultures did grow GNR likely E. Coli and urine culture was GPC likely enterococcus and Flagyl was switched to Ampicillin Awaiting blood and urine cultures results prior to de-escalation Continue her on maintenance fluids as her renal function remains slightly elevated Qualifiers: Sepsis type: sepsis due to unspecified organism Qualified Code(s): A41.9 - Sepsis, unspecified organism (2) Diverticulitis Current Visit: Yes Status: Acute Assessment and plan: CT demonstrates sigmoid diverticulitis Continuing on Cipro and Ampicillin as above Starting her on clear liquids and will increase as tolerated (3) Pneumonia Current Visit: Yes Status: Suspected Assessment and plan: X-ray did demonstrate a increased density in left retrocardiac region that could not rule out pneumonia Currently on Cipro Ampicillin for diverticulitis Influenza swab negative, await blood cultures Qualifiers: Pneumonia type: due to Pneumococcus Laterality: bilateral Lung location: lower lobe of lung Qualified Code(s): J13 - Pneumonia due to Streptococcus pneumoniae (4) UTI (urinary tract infection) Current Visit: Yes Status: Acute Assessment and plan: Initial UA did show both nitrite and leukocyte esterase however culture was not indicated Specific urine culture order was obtained and results show GPC Continue on Cipro and Ampicillin Qualifiers: Urinary tract infection type: acute cystitis Hematuria presence: without hematuria Qualified Code(s): N30.00 - Acute cystitis without hematuria (5) A-fib Current Visit: Yes Status: Chronic Assessment and plan: Patient currently in normal sinus rhythm We will continue home Cardizem and Coreg while monitoring blood pressure She is not on chronic anticoagulation due to history of GI bleed Qualifiers: Atrial fibrillation type: paroxysmal Qualified Code(s): I48.0 - Paroxysmal atrial fibrillation (6) Melanoma Current Visit: Yes Status: Chronic Assessment and plan: Patient does follow-up with oncology at [facility] Qualifiers: Laterality: unspecified laterality Qualified Code(s): 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 She states her nausea has improved markedly after phenergan and has not had any vomiting since yesterday. She states her urine output has increased a bit since yesterday and denies any bowel movements. No chest pain, shortness of breath, but she did have fever last night according to the chart, although she does not recall. - Constitutional Vitals: Temp Pulse Resp BP Pulse Ox 98.2 F 63 17 109/66 97 02/20/17 09:03 02/20/17 09:03 02/20/17 09:03 02/20/17 09:03 02/20/17 09:03 General appearance: Present: cooperative, A&O X 3, no acute distress, answers questions appropriately - Head Head exam: Present: atraumatic, normocephalic - Eye Eye exam: Present: PERRL, conjuntiva pink, sclera anicteric - Neck Neck exam general surgery: Present: supple, trachea midline. Absent: lymphadenopathy - Respiratory Respiratory exam: Present: CTAB. Absent: accessory muscle use, rales, rhonchi, wheezes - Cardiovascular Cardiovascular exam: Present: RRR, +S1, +S2. Absent: diastolic murmur, gallop, rubs, systolic murmur - GI/Abdominal GI/Abdominal exam: Present: normal bowel sounds, soft, no peritoneal signs. Absent: distended, tenderness - Extremities Exam Extremities exam: Present: warm, radial pulses palpable and symmetrical. Absent : calf tenderness, cyanotic, pedal edema - Neurological Exam Neurological exam: Present: alert, no focal deficits. Absent: facial droop, speech deficit - Skin Skin exam: Present: dry, intact Internal Medicine: Result - Labs CBC & Chem 7: 02/20/17 03:26 02/20/17 03:26 Labs: Short CBC 02/20/17 Range/Units 03:26 WBC 12.6 H (4.3-11.1) K/mcL Hgb 11.5 (11.5-15.4) g/dL Hct 36.1 (35.3-44.9) % Plt Count 158 (140-400) K/mcL Neutrophils # 10.7 H (1.6-8.9) K/mcL BMP 02/20/17 03:26 Sodium 137 Potassium 3.5 Chloride 108 H Carbon Dioxide 23 BUN 33 H Creatinine 2.09 H Glucose 131 H Calcium 8.4 L Consult Discharge Plan - Plan Referrals: Cornelia Stephen, ELECT[employer] HARDWARE ENGINEER [Primary Care Provider] - (Please call appt. friday..) <Duane Tatum - Last Filed: 02/20/17 17:50> Date of Encounter: 02/20/17 - Assessment and plan (1) Sepsis Current Visit: Yes Status: Acute Qualifiers: Sepsis type: Escherichia coli Qualified Code(s): A41.51 - Sepsis due to Escherichia coli [E. coli] (2) Nausea Current Visit: Yes Status: Resolved (3) Sigmoid diverticulitis Current Visit: Yes Status: Acute (4) Pneumonia Current Visit: Yes Status: Suspected Qualifiers: Pneumonia type: due to Pneumococcus Laterality: bilateral Lung location: lower lobe of lung Qualified Code(s): J13 - Pneumonia due to Streptococcus pneumoniae (5) UTI (urinary tract infection) Current Visit: Yes Status: Acute Qualifiers: Urinary tract infection type: acute cystitis Hematuria presence: without hematuria Qualified Code(s): N30.00 - Acute cystitis without hematuria (6) A-fib Current Visit: Yes Status: Chronic Qualifiers: Atrial fibrillation type: paroxysmal Qualified Code(s): I48.0 - Paroxysmal atrial fibrillation (7) Melanoma Current Visit: Yes Status: Chronic Qualifiers: Laterality: unspecified laterality Qualified Code(s): 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, including canthus - Constitutional Vitals: Temp Pulse Resp BP Pulse Ox 98.1 F 63 16 113/66 94 02/20/17 16:23 02/20/17 16:23 02/20/17 16:23 02/20/17 16:23 02/20/17 16:23 Internal Medicine: Result - Labs CBC & Chem 7: 02/20/17 03:26 02/20/17 03:26 Labs: Short CBC 02/20/17 Range/Units 03:26 WBC 12.6 H (4.3-11.1) K/mcL Hgb 11.5 (11.5-15.4) g/dL Hct 36.1 (35.3-44.9) % Plt Count 158 (140-400) K/mcL Neutrophils # 10.7 H (1.6-8.9) K/mcL BMP 02/20/17 03:26 Sodium 137 Potassium 3.5 Chloride 108 H Carbon Dioxide 23 BUN 33 H Creatinine 2.09 H Glucose 131 H Calcium 8.4 L - Attending Attestation I examined this patient and my medical decision-making was reviewed with the Resident Physician on 02/20/17. I agree with the documented findings, disposition and treatment plan as described except to the extent set forth below. Ms Tatum is currently admitted for sepsis related to acute diverticulitis with E coli bacteremia and UTI with enterococcus. She remains moderate to high risk due to potential for worsening clinical status. Ms Tatum is not as nauseated today. She is tolerating clear liquids. Blood cx are positive for E coli. No chills. Abd pain improving. Exam Alert. Comfortable Mucus membranes dry Heart irreg Lungs clear at this time Abd soft I/P 1. E coli bacteremia/sepsis 2. Diverticulitis 3 UTI Further diagnoses and plan as above
[2017-02-20] MEDS: Ampicillin 2 GM in 0.9 % Sodium Chloride Mini Bag 100 ML IVPB SCH ×2 (12:48→16:48)
[2017-02-21] MEDS: Ampicillin 2 GM in 0.9 % Sodium Chloride Mini Bag 100 ML IVPB SCH ×4 (00:15→18:20)
[2017-02-21] MEDS: Acetaminophen 325 MG TABLET PO PRN (02:45)
[2017-02-21] MEDS: 0.9 % Sodium Chloride 1,000 ML IVC SCH (04:21)
[2017-02-21 06:59] LABS: Basophils % 0.3 %; Eosinophils # 0.2 K/mcL (0.0-0.6); Eosinophils % 1.7 %; Hematocrit 32.8 % (35.3-44.9); Immature Granulocytes % 0.8 % (0-4); Lymphocytes # 0.8 K/mcL (0.6-4.6); Lymphocytes % 8.1 %; Mean Corpuscular HGB Conc 33.5 g/dL (31.6-35.5); Mean Corpuscular Hemoglobin 31.7 pg (28.0-33.3); Mean Corpuscular Volume 94.5 fL (83.0-100.0); Monocytes # 1.3 K/mcL (0.0-1.3); Monocytes % 13.1 %; Neutrophils # 7.7 K/mcL (1.6-8.9); Platelet Count 155 K/mcL (140-400); Red Blood Count 3.47 M/mcL (3.82-4.97); Red Cell Distribution Width 15.9 % (11.5-14.5)
[2017-02-21 07:22] LABS: Calcium 8.2 mg/dL (8.6-10.3); Potassium 3.2 mEq/L (3.5-5.1)
[2017-02-21] MEDS: *HR* Heparin 5,000 UNIT/ML VIAL SQ SCH ×2 (07:34→18:20)
[2017-02-21] MEDS: Aspirin Enteric Coated 81 MG Tablet PO SCH (07:59)
[2017-02-21] MEDS: Diltiazem CD (24hr) 120 MG CAPSULE PO SCH (07:59)
[2017-02-21] MEDS: Cholecalciferol (D-3) 1,000 UNIT TABLET PO SCH (08:00)
--- NOTE | 2017-02-21 10:02 | Internal Med Progress Note ---
<Jose Lu - Last Filed: 02/21/17 10:28> Date of Encounter: 02/21/17 Time of Encounter: 09:59 - Assessment and plan (1) Sepsis Current Visit: Yes Status: Acute Assessment and plan: Secondary to diverticulitis as seen on CAT scan and also possible UTI She did not have any fevers; blood culture has been ordered yesterday since she had fevers on 02/20/16, awaiting results Patient was started on vancomycin and Zosyn, but this has been switched to Cipro and Flagyl Blood cultures did grow E. Coli and urine culture was GPC likely enterococcus and Flagyl was switched to Ampicillin Awaiting blood and urine cultures results prior to de-escalation White count improved Qualifiers: Sepsis type: Escherichia coli Qualified Code(s): A41.51 - Sepsis due to Escherichia coli [E. coli] (2) E coli bacteremia Current Visit: Yes Status: Acute Assessment and plan: Management with Ampicillin and Cipro as above Await repeat cultures (3) Diverticulitis Current Visit: Yes Status: Acute Assessment and plan: CT demonstrates sigmoid diverticulitis Continuing on Cipro and Ampicillin as above Advancing her to cardiac diet today as she tolerated full liquids (4) UTI (urinary tract infection) Current Visit: Yes Status: Acute Assessment and plan: Initial UA did show both nitrite and leukocyte esterase however culture was not indicated Specific urine culture order was obtained and results show GPC, likely enterococcus Continue on Cipro and Ampicillin Qualifiers: Urinary tract infection type: acute cystitis Hematuria presence: without hematuria Qualified Code(s): N30.00 - Acute cystitis without hematuria (5) ELISE (acute kidney injury) Current Visit: Yes Status: Acute Assessment and plan: Cr improved to 1.73 from 2.09 yesterday after fluid administration; baseline around 1 She does have adequate oral intake so [facility]'ed Will continue to monitor electrolytes and Cr, avoid nephrotoxic agents (6) A-fib Current Visit: Yes Status: Chronic Assessment and plan: Patient currently in normal sinus rhythm We will continue home Cardizem and Coreg while monitoring blood pressure She is not on chronic anticoagulation due to history of GI bleed Qualifiers: Atrial fibrillation type: paroxysmal Qualified Code(s): I48.0 - Paroxysmal atrial fibrillation (7) Melanoma Current Visit: Yes Status: Chronic Assessment and plan: Patient does follow-up with oncology at [facility] Qualifiers: Laterality: unspecified laterality Qualified Code(s): 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 She is doing better this morning and states she tolerated her full liquid diet without any nausea or vomiting. She did have two bowel movements yesterday and stated it was "honey-consistency" but denies any blood. She is breathing well and has no issues with pain. - Constitutional Vitals: Temp Pulse Resp BP Pulse Ox 97.6 F 59 14 124/70 96 02/21/17 07:43 02/21/17 07:43 02/21/17 07:43 02/21/17 07:43 02/21/17 07:43 General appearance: Present: cooperative, no acute distress, answers questions appropriately - Head Head exam: Present: atraumatic, normocephalic - Eye Eye exam: Present: PERRL, conjuntiva pink, sclera anicteric - Neck Neck exam general surgery: Present: supple, trachea midline. Absent: lymphadenopathy - Respiratory Respiratory exam: Present: CTAB. Absent: accessory muscle use, rales, rhonchi, wheezes - Cardiovascular Cardiovascular exam: Present: RRR, +S1, +S2. Absent: diastolic murmur, gallop, rubs, systolic murmur - GI/Abdominal GI/Abdominal exam: Present: normal bowel sounds, soft, no peritoneal signs. Absent: distended, tenderness - Extremities Exam Extremities exam: Present: warm, radial pulses palpable and symmetrical. Absent : calf tenderness, cyanotic, pedal edema - Neurological Exam Neurological exam: Present: alert, no focal deficits. Absent: facial droop, speech deficit - Skin Skin exam: Present: dry, intact Internal Medicine: Result - Labs CBC & Chem 7: 02/21/17 06:50 02/21/17 06:50 Labs: Short CBC 02/21/17 Range/Units 06:50 WBC 10.1 (4.3-11.1) K/mcL Hgb 11.0 L (11.5-15.4) g/dL Hct 32.8 L (35.3-44.9) % Plt Count 155 (140-400) K/mcL Neutrophils # 7.7 (1.6-8.9) K/mcL BMP 02/21/17 06:50 Sodium 140 Potassium 3.2 L Chloride 112 H Carbon Dioxide 23 BUN 25 H Creatinine 1.73 H Glucose 98 Calcium 8.2 L Consult Discharge Plan - Plan Referrals: Cornelia Stephen, CSO [Primary Care Provider] - (Please call appt. friday..) <Duane Tatum - Last Filed: 02/21/17 17:58> Date of Encounter: 02/21/17 - Assessment and plan (1) Sepsis Current Visit: Yes Status: Acute Qualifiers: Sepsis type: Escherichia coli Qualified Code(s): A41.51 - Sepsis due to Escherichia coli [E. coli] (2) Nausea Current Visit: Yes Status: Resolved (3) Sigmoid diverticulitis Current Visit: Yes Status: Acute (4) Pneumonia Current Visit: Yes Status: Suspected Qualifiers: Pneumonia type: due to Pneumococcus Laterality: bilateral Lung location: lower lobe of lung Qualified Code(s): J13 - Pneumonia due to Streptococcus pneumoniae (5) UTI (urinary tract infection) Current Visit: Yes Status: Acute Qualifiers: Urinary tract infection type: acute cystitis Hematuria presence: without hematuria Qualified Code(s): N30.00 - Acute cystitis without hematuria (6) A-fib Current Visit: Yes Status: Chronic Qualifiers: Atrial fibrillation type: paroxysmal Qualified Code(s): I48.0 - Paroxysmal atrial fibrillation (7) Melanoma Current Visit: Yes Status: Chronic Qualifiers: Laterality: unspecified laterality Qualified Code(s): 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, including canthus - Constitutional Vitals: Temp Pulse Resp BP Pulse Ox 98.0 F 56 14 125/69 96 02/21/17 17:07 02/21/17 17:07 02/21/17 17:07 02/21/17 17:07 02/21/17 17:07 Internal Medicine: Result - Labs CBC & Chem 7: 02/21/17 06:50 02/21/17 06:50 Labs: Short CBC 02/21/17 Range/Units 06:50 WBC 10.1 (4.3-11.1) K/mcL Hgb 11.0 L (11.5-15.4) g/dL Hct 32.8 L (35.3-44.9) % Plt Count 155 (140-400) K/mcL Neutrophils # 7.7 (1.6-8.9) K/mcL BMP 02/21/17 06:50 Sodium 140 Potassium 3.2 L Chloride 112 H Carbon Dioxide 23 BUN 25 H Creatinine 1.73 H Glucose 98 Calcium 8.2 L - Attending Attestation I examined this patient and my medical decision-making was reviewed with the Resident Physician on 02/21/17. I agree with the documented findings, disposition and treatment plan as described except to the extent set forth below. Ms Tatum is currently admitted for E coli bacteremia and sepsis due to acute diverticulitis. She remains moderate to high risk due to potential for worsening clinical status. Ms aTtum is about to eat dinner. She had BM that was thick consistency today. No fever or chills. No abd pain at this time. Repeat blood cx pending. Exam Alert. Comfortable Mucus membranes dry Heart not tachy No wheeze Abd soft Urine cx with <[id number] col bacteria. Doubt UTI. I/P 1. Sepsis resolved 2. E coli bacteremia Further diagnoses and plan as above.
[2017-02-21] MEDS: Potassium Chloride Elixir 20 MEQ/15 ML UDC PO ONE ×2 (10:46→10:54)
[2017-02-21] MEDS: MetroNIDAZOLE 500 MG/100 ML 500 MG/100 ML BAG IVPB SCH (11:30)
[2017-02-22] MEDS: Ampicillin 2 GM in 0.9 % Sodium Chloride Mini Bag 100 ML IVPB SCH ×2 (00:39→06:22)
[2017-02-22] MEDS ORDERED: Sennosides/Docusate Sodium TABLET PO PRN ×3 (05:16→09:56)
[2017-02-22 05:56] LABS: Basophils # 0.1 K/mcL (0.0-0.2); Basophils % 0.6 %; Eosinophils # 0.2 K/mcL (0.0-0.6); Eosinophils % 2.8 %; Hematocrit 35.4 % (35.3-44.9); Hemoglobin 11.8 g/dL (11.5-15.4); Immature Granulocytes % 1.4 % (0-4); Lymphocytes # 1.1 K/mcL (0.6-4.6); Lymphocytes % 13.4 %; Mean Corpuscular HGB Conc 33.3 g/dL (31.6-35.5); Mean Corpuscular Hemoglobin 31.6 pg (28.0-33.3); Mean Corpuscular Volume 94.7 fL (83.0-100.0); Mean Platelet Volume 10.3 fL (9.4-12.4); Monocytes # 1.2 K/mcL (0.0-1.3); Monocytes % 14.9 %; Neutrophils # 5.4 K/mcL (1.6-8.9); Platelet Count 196 K/mcL (140-400); Red Blood Count 3.74 M/mcL (3.82-4.97); Red Cell Distribution Width 15.8 % (11.5-14.5); Segmented Neutrophils % 66.9 %
[2017-02-22] MEDS: *HR* Heparin 5,000 UNIT/ML VIAL SQ SCH ×2 (06:22→17:27)
[2017-02-22 06:44] LABS: Calcium 8.5 mg/dL (8.6-10.3); Magnesium 1.8 mg/dL (1.6-2.6); Potassium 3.3 mEq/L (3.5-5.1)
[2017-02-22] MEDS: Aspirin Enteric Coated 81 MG Tablet PO SCH (08:04)
[2017-02-22] MEDS: Cholecalciferol (D-3) 1,000 UNIT TABLET PO SCH (08:04)
[2017-02-22] MEDS: Diltiazem CD (24hr) 120 MG CAPSULE PO SCH (08:04)
--- NOTE | 2017-02-22 09:57 | Internal Med Progress Note ---
<Jose Lu - Last Filed: 02/22/17 12:00> Date of Encounter: 02/22/17 Time of Encounter: 09:54 - Assessment and plan (1) Sepsis Current Visit: Yes Status: Acute Assessment and plan: Secondary to diverticulitis as seen on CAT scan and also possible UTI She did not have any fevers overnight and blood cultures have been negative so far Blood cultures initially showed Escherichia coli sensitive to Levaquin, and she has switched to oral Levaquin monotherapy Plan discharging home tomorrow if blood cultures remain negative Qualifiers: Sepsis type: Escherichia coli Qualified Code(s): A41.51 - Sepsis due to Escherichia coli [E. coli] (2) E coli bacteremia Current Visit: Yes Status: Acute Assessment and plan: Switch to oral Levaquin as above Await repeat cultures (3) Diverticulitis Current Visit: Yes Status: Acute Assessment and plan: CT demonstrates sigmoid diverticulitis Levaquin oral as above She has tolerated her cardiac diet without issues (4) UTI (urinary tract infection) Current Visit: Yes Status: Acute Assessment and plan: Initial UA did show both nitrite and leukocyte esterase however culture was not indicated Urine culture did show enterococcus, however this is likely a contaminant as UA was positive for squamous epithelium Qualifiers: Urinary tract infection type: acute cystitis Hematuria presence: without hematuria Qualified Code(s): N30.00 - Acute cystitis without hematuria (5) ELISE (acute kidney injury) Current Visit: Yes Status: Acute Assessment and plan: Cr continue to improve to 1.48 from 1.73 Encourage her to continue drinking fluids Will continue to monitor electrolytes and Cr, avoid nephrotoxic agents (6) A-fib Current Visit: Yes Status: Chronic Assessment and plan: Patient currently in normal sinus rhythm We will continue home Cardizem and Coreg while monitoring blood pressure She is not on chronic anticoagulation due to history of GI bleed Qualifiers: Atrial fibrillation type: paroxysmal Qualified Code(s): I48.0 - Paroxysmal atrial fibrillation (7) Melanoma Current Visit: Yes Status: Chronic Assessment and plan: Patient does follow-up with oncology at [facility] Qualifiers: Laterality: unspecified laterality Qualified Code(s): 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 She is doing well this morning and is only complaining of constipation as she has not had a bowel movement since day 1 of admission. Has no issues with nausea, vomiting, fevers. - Constitutional Vitals: Temp Pulse Resp BP Pulse Ox 97.9 F 61 16 132/74 96 02/22/17 07:28 02/22/17 07:28 02/22/17 07:28 02/22/17 07:28 02/22/17 07:28 General appearance: Present: cooperative, no acute distress, answers questions appropriately - Head Head exam: Present: atraumatic, normocephalic - Eye Eye exam: Present: PERRL, conjuntiva pink, sclera anicteric - Neck Neck exam general surgery: Present: supple, trachea midline. Absent: lymphadenopathy - Respiratory Respiratory exam: Present: CTAB. Absent: accessory muscle use, rales, rhonchi, wheezes - Cardiovascular Cardiovascular exam: Present: RRR, +S1, +S2. Absent: diastolic murmur, gallop, rubs, systolic murmur - GI/Abdominal GI/Abdominal exam: Present: normal bowel sounds, soft, no peritoneal signs. Absent: distended, tenderness - Extremities Exam Extremities exam: Present: pedal edema, warm, radial pulses palpable and symmetrical. Absent: calf tenderness, cyanotic - Neurological Exam Neurological exam: Present: alert, no focal deficits. Absent: facial droop, speech deficit - Skin Skin exam: Present: dry, intact Internal Medicine: Result - Labs CBC & Chem 7: 02/22/17 05:27 02/22/17 05:27 Labs: Short CBC 02/22/17 Range/Units 05:27 WBC 8.0 (4.3-11.1) K/mcL Hgb 11.8 (11.5-15.4) g/dL Hct 35.4 (35.3-44.9) % Plt Count 196 (140-400) K/mcL Neutrophils # 5.4 (1.6-8.9) K/mcL BMP 02/22/17 05:27 Sodium 144 Potassium 3.3 L Chloride 110 H Carbon Dioxide 25 BUN 20 Creatinine 1.48 H Glucose 102 Calcium 8.5 L Consult Discharge Plan - Plan Referrals: Cornelia Stephen, [employer] [Primary Care Provider] - (Please call appt. friday..) <Duane Tatum Tracie - Last Filed: 02/22/17 15:40> Date of Encounter: 02/22/17 - Assessment and plan (1) Constipation by delayed colonic transit Current Visit: Yes Status: Acute Assessment and plan: Add Senna and Mag citrate. (2) Sepsis Current Visit: Yes Status: Acute Qualifiers: Sepsis type: Escherichia coli Qualified Code(s): A41.51 - Sepsis due to Escherichia coli [E. coli] (3) Nausea Current Visit: Yes Status: Resolved (4) Sigmoid diverticulitis Current Visit: Yes Status: Acute (5) Pneumonia Current Visit: Yes Status: Suspected Qualifiers: Pneumonia type: due to Pneumococcus Laterality: bilateral Lung location: lower lobe of lung Qualified Code(s): J13 - Pneumonia due to Streptococcus pneumoniae (6) UTI (urinary tract infection) Current Visit: Yes Status: Ruled-out Qualifiers: Urinary tract infection type: acute cystitis Hematuria presence: without hematuria Qualified Code(s): N30.00 - Acute cystitis without hematuria (7) A-fib Current Visit: Yes Status: Chronic Qualifiers: Atrial fibrillation type: paroxysmal Qualified Code(s): I48.0 - Paroxysmal atrial fibrillation (8) Melanoma Current Visit: Yes Status: Chronic Qualifiers: Laterality: unspecified laterality Qualified Code(s): 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, including canthus - Constitutional Vitals: Temp Pulse Resp BP Pulse Ox 97.8 F 61 16 135/76 95 02/22/17 12:12 02/22/17 12:12 02/22/17 12:12 02/22/17 12:12 02/22/17 12:12 Internal Medicine: Result - Labs CBC & Chem 7: 02/22/17 05:27 02/22/17 05:27 Labs: Short CBC 02/22/17 Range/Units 05:27 WBC 8.0 (4.3-11.1) K/mcL Hgb 11.8 (11.5-15.4) g/dL Hct 35.4 (35.3-44.9) % Plt Count 196 (140-400) K/mcL Neutrophils # 5.4 (1.6-8.9) K/mcL BMP 02/22/17 05:27 Sodium 144 Potassium 3.3 L Chloride 110 H Carbon Dioxide 25 BUN 20 Creatinine 1.48 H Glucose 102 Calcium 8.5 L - Attending Attestation I examined this patient and my medical decision-making was reviewed with the Resident Physician on 02/22/17. I agree with the documented findings, disposition and treatment plan as described except to the extent set forth below. Ms Tatum is currently admitted for acute diverticulitiis and E coli bacteremia. She remains moderate to high risk due to potential for worsening clinical status. Ms Tatum is constipated. Abd pain is improving. She feels she has gained a lot of weight since admission. No fever or chills. Exam Alert. Comfortable Mucus membranes dry Heart reg No wheeze Abd soft - bowel sound good. Diffuse mild tenderness - worse in LLQ. I/P 1. Constipation - add mag citrate 2. E coli bacteremia Further diagnoses and plan as above.
[2017-02-23 04:17] LABS: Basophils % 0.4 %; Eosinophils # 0.2 K/mcL (0.0-0.6); Eosinophils % 2.1 %; Hematocrit 33.7 % (35.3-44.9); Hemoglobin 11.4 g/dL (11.5-15.4); Immature Granulocytes % 2.1 % (0-4); Lymphocytes # 1.4 K/mcL (0.6-4.6); Lymphocytes % 14.5 %; Mean Corpuscular HGB Conc 33.8 g/dL (31.6-35.5); Mean Corpuscular Hemoglobin 31.8 pg (28.0-33.3); Mean Corpuscular Volume 93.9 fL (83.0-100.0); Mean Platelet Volume 10.3 fL (9.4-12.4); Monocytes # 1.3 K/mcL (0.0-1.3); Monocytes % 13.3 %; Neutrophils # 6.7 K/mcL (1.6-8.9); Platelet Count 207 K/mcL (140-400); Red Blood Count 3.59 M/mcL (3.82-4.97); Red Cell Distribution Width 15.3 % (11.5-14.5); Segmented Neutrophils % 67.6 %
[2017-02-23 04:42] LABS: Calcium 8.3 mg/dL (8.6-10.3)
[2017-02-23] MEDS: *HR* Heparin 5,000 UNIT/ML VIAL SQ SCH (05:57)
[2017-02-23 07:31] VITALS: BP 134/75
--- NOTE | 2017-02-23 08:06 | Discharge Summary ---
<Jose Lu - Last Filed: 02/23/17 12:52> Date of Encounter: 02/23/17 Time of Encounter: 08:02 - Discharge Diagnosis (1) Sepsis Priority: Primary Status: Acute Qualifiers: Sepsis type: Escherichia coli Qualified Code(s): A41.51 - Sepsis due to Escherichia coli [E. coli] (2) E coli bacteremia Priority: Secondary Status: Acute (3) Diverticulitis Priority: Secondary Status: Acute (4) UTI (urinary tract infection) Priority: Secondary Status: Ruled-out Qualifiers: Urinary tract infection type: acute cystitis Hematuria presence: without hematuria Qualified Code(s): N30.00 - Acute cystitis without hematuria (5) ELISE (acute kidney injury) Priority: Secondary Status: Acute (6) A-fib Priority: Secondary Status: Chronic Qualifiers: Atrial fibrillation type: paroxysmal Qualified Code(s): I48.0 - Paroxysmal atrial fibrillation (7) Melanoma Priority: Secondary Status: Chronic Qualifiers: Laterality: unspecified laterality Qualified Code(s): 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, including canthus (8) DVT prophylaxis Priority: Secondary Status: Acute - Discharge Medications Prescriptions: Ondansetron ODT [Zofran ODT] 4 mg SL Q6HR #20 tab.rapdis levoFLOXacin [Levaquin] 750 mg PO DAILY #12 tablet Sennosides/Docusate Sodium [Senna Plus] 1 each PO BID PRN #14 tablet PRN Reason: Constipation - 1st line Home Medications: Aspirin [Lo-Dose Aspirin EC] 81 mg PO DAILY 01/10/17 [History] Carvedilol [Coreg] 25 mg PO BID 01/10/17 [History] Cholecalciferol (D-3) [Vitamin D] 1,000 unit PO DAILY 01/10/17 [History] Cyanocobalamin (B-12) [Vitamin B12] 1,000 mg IM QMONTH 01/10/17 [History] Losartan/Hydrochlorothiazide [Losartan-Hctz 50-12.5 mg Tab] 1 tab PO DAILY 01/10 [History] Multivit-Min/FA/Lycopen/Lutein [A Thru [employer] Multivit Tab] 1 tab PO DAILY [History] Pantoprazole Sodium [Protonix] 40 mg PO DAILY 01/10/17 [History] Ustekinumab [STELARA (For Outpatient Infusion)] 90 mg SQ [id number] 01/10/17 [ History] Diltiazem CD (24hr) [Cardizem CD] 120 mg PO DAILY #30 cap.er.24h 01/15/17 [Rx] Ferrous Sulfate [Iron] 325 mg PO DAILY 02/06/17 [History] Rosuvastatin Calcium 10 mg PO HS 02/06/17 [History] Ca Citrate/Mgox/Vit D3/B6/Min [Calcium Citrate Plus Tablet] 2 each PO DAILY 04/06 [History] Ondansetron ODT [Zofran ODT] 4 mg SL Q6HR #20 tab.rapdis 02/23/17 [Rx] Sennosides/Docusate Sodium [Senna Plus] 1 each PO BID PRN #14 tablet 02/23/17 [ Rx] levoFLOXacin [Levaquin] 750 mg PO DAILY #12 tablet 02/23/17 [Rx] Allergies/Adverse Reactions: 3 Allergy/AdvReac Type Severity Reaction Status Date / Time amlodipine [From [facility]] AdvReac Cough Verified 02/06/17 07:34 latex AdvReac Rash Verified 02/18/17 18:40 Procedures/tests Complete & Pending: Procedures Performed prior 72 hours Category Date Time Status CT abd pelvis wo no iv no oral [CT] Routine Cat Scan 02/23/17 07:53 Ordered Date of admission: 02/20/17 17:42 Primary care physician: Cornelia Stephen CNP Discharging clinician: Jose Lu Anticipated date of discharge: 02/23/17 - Patient Status Disposition: Home, Self-Care Condition: Fair Functional capacity at discharge: independent ambulation Overall status at discharge: patient is progressing back to baseline - Discharge Instructions Instructions: Diverticulitis (DC), Sepsis (DC) Follow Up With: Cornelia Stephen CNP [Primary Care Provider] - (Please call appt. friday..) Additional Instructions: Please follow-up with her primary care physician within 1 week of discharge Please delay your colonoscopy to 6-8 weeks after discharge due to having diverticulitis - Diet and Activity Activity: increase activity as tolerated Diet: advance to your usual diet Hospital course: Ms. Tatum is a 71 year old female who presents to the emergency department with nausea and vomiting. CT scan of the abdomen did reveal sigmoid diverticulitis and she was initially started on vancomycin and Zosyn. Her urine also did grow enterococcus, however this was likely due to contamination as UA showed many squamous epithelium. She did develop fevers overnight and white count increased, so her antibiotics were switched to Cipro and Flagyl. Her blood cultures were eventually positive for Escherichia coli that was resistant to Bactrim and ampicillin, and her antibiotic was switched to oral Levaquin. Repeat cultures have been negative for 48 hours and her white count has normalized. She also had some ELISE upon admission which was twice as her baseline, likely due to sepsis. Her creatinine did decrease down to near baseline after fluid administration and adequate oral hydration. Since she did have diverticulitis and recent colonoscopy and barium swallow identified a fluid collection in the splenic flexure, she had another CT abdomen and pelvis which did rule out any signs of perforation or abscess. Patient did have a bowel movement after she receives senna plus and also mag citrate. She states it was black, but had this in the past as she is on iron tablets. Patient has no complaints of pain, breathing issues, nausea, vomiting , fevers this morning states she feels well enough to go home. She does have a colonoscopy scheduled as an outpatient for next week, however she was informed to delay this by 6-8 weeks to decrease risk of perforation after diverticulitis. She will be receiving 12 more days of Levaquin to complete a 14 day course for Escherichia coli bacteremia and also will be going home on anti-emetics and laxatives as needed. - Time Spent with Patient Total time spent providing and/or coordinating discharge services: Greater than 30 minutes - Constitutional Vitals: Temp Pulse Resp BP Pulse Ox 97.8 F 64 16 134/75 95 02/23/17 07:25 02/23/17 07:25 02/23/17 07:25 02/23/17 07:25 02/23/17 07:25 General appearance: Present: cooperative, no acute distress, answers questions appropriately - Head Head exam: Present: atraumatic, normocephalic - Eye Eye exam: Present: PERRL, conjuntiva pink, sclera anicteric - Neck Neck exam general surgery: Present: supple, trachea midline. Absent: lymphadenopathy - Respiratory Respiratory exam: Present: CTAB. Absent: accessory muscle use, rales, rhonchi, wheezes - Cardiovascular Cardiovascular exam: Present: RRR, +S1, +S2. Absent: diastolic murmur, gallop, rubs, systolic murmur - GI/Abdominal GI/Abdominal exam: Present: normal bowel sounds, soft, no peritoneal signs. Absent: distended, tenderness - Extremities Exam Extremities exam: Present: warm, radial pulses palpable and symmetrical. Absent : calf tenderness, cyanotic, pedal edema - Neurological Exam Neurological exam: Present: alert, no focal deficits. Absent: facial droop, speech deficit - Skin Skin exam: Present: dry, intact <Duane Tatum - Last Filed: 02/23/17 16:15> Date of Encounter: 02/23/17 - Discharge Diagnosis (1) Sepsis Status: Resolved Qualifiers: Sepsis type: Escherichia coli Qualified Code(s): A41.51 - Sepsis due to Escherichia coli [E. coli] (2) Sigmoid diverticulitis Priority: Primary Status: Acute (3) Constipation by delayed colonic transit Priority: Secondary Status: Acute (4) Nausea Priority: Secondary Status: Resolved (5) Pneumonia Priority: Secondary Status: Suspected Qualifiers: Pneumonia type: due to Pneumococcus Laterality: bilateral Lung location: lower lobe of lung Qualified Code(s): J13 - Pneumonia due to Streptococcus pneumoniae (6) UTI (urinary tract infection) Status: Ruled-out Qualifiers: Urinary tract infection type: acute cystitis Hematuria presence: without hematuria Qualified Code(s): N30.00 - Acute cystitis without hematuria (7) A-fib Status: Chronic Qualifiers: Atrial fibrillation type: paroxysmal Qualified Code(s): I48.0 - Paroxysmal atrial fibrillation (8) Melanoma Status: Chronic Qualifiers: Laterality: unspecified laterality Qualified Code(s): 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 Tatum is a 71 year old female - Time Spent with Patient Total time spent providing and/or coordinating discharge services: 37min - Constitutional Vitals: Temp Pulse Resp BP Pulse Ox 97.8 F 64 16 134/75 95 02/23/17 07:25 02/23/17 07:25 02/23/17 07:25 02/23/17 07:25 02/23/17 07:25 - Attending Attestation I examined this patient and my medical decision-making was reviewed with the Resident Physician on 02/23/17. I agree with the documented findings, disposition and treatment plan as described except to the extent set forth below. Ms Tatum has been admitted for sepsis related to acute diverticulitis and e coli bacteremia. She is now afebrile with stable vitals. CT today does not show abscess or other acute process. She is tolerating PO abx and ready for discharge home. Exam Alert. Comfortable Mucus membranes dry Heart not tachy Lungs clear Plan D/C home today Follow with PCP and Dr. Augustine Education on diverticular disease given.
[2017-02-23] MEDS ORDERED: levoFLOXacin 750 MG TABLET PO SCH (09:00)
[2017-02-23] MEDS: Cholecalciferol (D-3) 1,000 UNIT TABLET PO SCH (09:45)
[2017-02-23] MEDS: Diltiazem CD (24hr) 120 MG CAPSULE PO SCH (09:45)
[2017-02-23] MEDS: Aspirin Enteric Coated 81 MG Tablet PO SCH (09:45)
== END 2017-02-23 13:28 | disposition home or self-care (01) | DRG 871 ==
LOC: 2ANU 13:01 → EMEROO 13:01 → SUATTDRO 19:39 → 2ANU 20:02
PROVIDERS: ADMIT Internal Medicine; ATTEND Internal Medicine